=== PATIENT | male | born 1955 | race Caucasian/White ===

== ENCOUNTER 2019-08-13 22:14 | Emergency (ER) | payer MEDICARE, SELFPAY ==
--- NOTE | ~2019-08-13 | XR_ITS ---
EXAMINATION: [id number] DATE: 08/13/2019 23:23 INDICATION: Right upper rib pain after coughing TECHNIQUE: A frontal inspiratory view of the chest and 3 views of the right ribs were obtained. COMPARISON: Chest radiograph dated 05/30/[address] dated 04/08/2019 FINDINGS: Subtle old healed right eighth rib fracture which was present at the time of the prior CT. Minimally displaced age-indeterminate posterolateral right seventh rib fracture which was not present at the ti me of the prior CT. Mild bibasilar atelectasis. No pleural effusion or pneumothorax. Cardiomediastina l silhouette is normal. IMPRESSION: 1. Right seventh and eighth rib fractures, the former age-indeterminate and new since 04/08/2019. 2. Mild bibasilar atelectasis. Reviewed, dictated and finalized at location A.
[2019-08-13 22:20] VITALS: BP 164/84; PULSE 91; RESP 20; TEMP 36.7; O2SAT 95
--- NOTE | 2019-08-13 22:58 | ED.CHESTPAIN ---
HPI - Chest Pain General Chief Complaint: Unspecified Stated Complaint: pain in right rib area Time Seen by Provider: 08/13/19 22:59 Source: patient and family Mode of arrival: ambulatory Limitations: no limitations History of Present Illness HPI narrative: 63-year-old man comes in today complaining of right lower rib pain that started 4 days ago after a fit of coughing. He states he felt a pop. He denies shortness of breath, nausea, vomiting, fever, hemoptysis, sputum production, or history cardiac or lung disease. In March of last year he was seen at [facility], found to have a rib fracture and effusion but the patient thinks was brought on by coughing. He states he is taking an BASIL-inhibitor but he has not got around to seeing his doctor yet. MD complaint: chest pain Onset (ago): day(s) (4) Timing of current episode: constant Prior episodes: Yes Onset: other (while coughing) Pain location: right chest and lateral Pain radiation: none Severity: severe Quality: sharp Relieving factors: nothing Exacerbating factors: inspiration, movement and other (cough) Treatment prior to arrival: other Risk Factors Coronary artery disease risk factors: hypertension Thoracic aortic dissection risk factors: none Related Data Home Medications Medication Instructions Recorded Confirmed amlodipine 10 mg tablet 10 mg PO DAILY 03/27/19 08/13/19 cyclobenzaprine 10 mg tablet 10 mg PO TID PRN 03/27/19 08/13/19 diclofenac sodium 50 mg PO BID 04/08/19 08/13/19 Allergies Allergy/AdvReac Type Severity Reaction Status Date / Time No Known Allergies Allergy Verified 04/28/19 09:19 Review of Systems Constitutional: Constitutional: Denies chills, Denies fatigue and Denies fever(s) Eyes: Eyes: Denies change in vision and Denies photophobia ENT: Denies dysphagia, Denies nasal congestion and Denies sore throat Cardiovascular: Cardiovascular: Denies chest pain and Denies radiating jaw, neck or arm pain Respiratory: Respiratory: Denies cough, Denies dyspnea and Denies wheezing Gastrointestinal: Gastrointestinal: Denies abdominal pain, Denies nausea and Denies vomiting Genitourinary: Genitourinary: Denies hematuria, Denies dysuria and Denies urinary frequency Musculoskeletal: Musculoskeletal: Denies back pain, Denies arthralgias and Denies joint swelling Integumentary/Breasts: Skin/Breast: Denies pruritus, Denies erythema and Denies rash Neurologic: Denies vertigo, Denies dizziness and Denies syncope Hematologic/Lymphatic: Hematologic/Lymphatic: Denies easy bleeding and Denies easy bruising Allergic/Immunologic: Allergic/Immunologic: Denies lip swelling and Denies wheezing [facility] Past Medical History Medical History Atelectasis of right lung Right lower lobe Atypical mole Left upper arm Erectile dysfunction Essential hypertension Hepatic steatosis Hip pain Hyperlipidemia Lower back pain Nicotine dependence 35 pack year history - quit in 2017 Pleural effusion on right PVD (peripheral vascular disease) Surgical History Surgical History History of back surgery (~1991) L4-L5 diskectomy History of carpal tunnel release of both wrists Hx of left inguinal hernia repair Hx of right inguinal hernia repair Hx of total knee arthroplasty Bilateral Status post LASIK surgery of both eyes Social History Social History Social History: He is now disabled. 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 His ex- Love designated as his durable power patent prosecution attorney. He does needs himself to be a full code. He has 2 children Smoking packs per day: 1 Smoking cigarettes per day: 20.0 Years smoked: 35 Smoking pack-years: 35.00 Smoking status: Former smoker Tobacco type: cigarettes Smoking en
[2019-08-13] MEDS: KETOROLAC (*BKC) 60 MG/2 ML VIAL IM (23:22)
[2019-08-13 23:50] VITALS: BP 151/86; PULSE 80; RESP 20; O2SAT 94
== END 2019-08-13 23:51 | disposition home or self-care (01) ==
PROVIDERS: Emergency Provider Emergency Medicine
DX: S22.31XA Fracture of one rib, right side, initial encounter for closed fracture (principal); I10 Essential (primary) hypertension; Z87.891 Personal history of nicotine dependence; X58.XXXA Exposure to other specified factors, initial encounter
CPT/HCPCS: 71101; 96372; 99283; A9270; J1885

== ENCOUNTER 2019-11-07 12:18 | Outpatient (CLI) | payer MEDICARE, SELFPAY ==
--- NOTE | ~2019-11-07 | DEXA_ITS ---
BMD(1) Young-Adult(2) Age-Matched(3) Region (g/cm2) T-score Z-score WHO Classification L1 1.761 4.8 4.5 - L2 1.759 4.2 3.9 - L3 2.084 6.6 6.3 - L4 2.417 9.0 8.6 - L1-L4 (L3) 1.982 6.1 5.8 - Trend: L4 Change vs Change vs Measured Age BMD(1) Baseline Previous Date (years) (g/cm2) (%) (%) 11/07/2019 [age] 2.417 baseline - 1 - Statistically 68% of repeat scans fall within 1SD (+- 0.030 g/cm2 for AP Spine L4) 2 - [place] (Combined NHANES (ages 20-30) / [email or web address] (ages 20-40)) AP Spine Reference Population (v112) 3 - Matched for Age, Weight (males 25-100 kg), Ethnic 11 - World Health Organization - Definition of Osteoporosis and Osteopenia for Women: Normal = T-score at or above -1.0 SD; Osteopenia = T-score between -1.0 and -2.5 SD; Osteoporosis = T-score at or below -2.5 SD; (WHO definitions only apply when a young healthy Women reference database is used to determine T-scores.) Printed: 11/07/2019 12:56:04 PM (13.60)76:3.00:22.22:27.0 0.00:12.30 0.60x1.05 31.5:%Fat=37.2% 0.00:0.00 0.00:0.00 Filename: [id number] Scan Mode: Thick;OneScan 83.0 RealD [id number] BMD(1) Young-Adult(2,7) Age-Matched(3) Region (g/cm2) T-score Z-score WHO Classification Neck Left 1.048 -0.2 0.3 - Right 1.009 -0.5 0.0 - Mean 1.028 -0.3 0.2 - Difference 0.039 0.3 0.3 - Total Left 1.047 -0.4 -0.3 - Right 1.083 -0.1 -0.1 - Mean 1.065 -0.3 -0.2 - Difference 0.036 0.3 0.3 - Hip [place] Length Comparison (mm) WALE chart results unavailable Trend: Total Mean Change vs Change vs Measured Age BMD(1) Baseline Previous Date (years) (g/cm2) (%) (%) 11/07/2019 62.0 1.065 baseline - 1 - Statistically 68% of repeat scans fall within 1SD (+- 0.010 g/cm2 for DualFemur Total) 2 - [place] (Combined NHANES (ages 20-30) / [email or web address] (ages 20-40)) Femur Reference Population (v112) 3 - Matched for Age, Weight (males 25-100 kg), Ethnic 7 - DualFemur Total T-score difference is 0.3. Asymmetry is None. 11 - World Health Organization - Definition of Osteoporosis and Osteopenia for Women: Normal = T-score at or above -1.0 SD; Osteopenia = T-score between -1.0 and -2.5 SD; Osteoporosis = T-score at or below -2.5 SD; (WHO definitions only apply when a young healthy Women reference database is used to determine T-scores.) Printed: 11/07/2019 12:56:04 PM (13.60); Filename: [id number]; Right Femur; 22.3:%Fat=26.9%; Neck Angle (deg)= 59; Scan Mode: Standard 37.0 uGy; Left Femur; 22.8:%Fat=24.3%; Neck Angle (deg)= 62; Scan Mode: Standard 37.0 uGy [facility] [employer] [facility] [id number] Dear Denver Platt, Your patient Wily Tong completed a BMD test on 11/07/2019 using the [facility] DXA System (analysis version: 13.60) manufactured by [employer]. The following summarizes the results of our evaluation. PATIENT BIOGRAPHICAL: Name: Wily Tong Date: 1955 Height: 73.0 in. Gender: Male Exam Date: 11/07/2019 Weight: 260.0 lbs.
== END 2019-11-07 12:19 | disposition home or self-care (01) ==
PROVIDERS: PCP Family Medicine; Visit Provider Family Medicine
DX: M84.68XA Pathological fracture in other disease, other site, initial encounter for fracture (principal)
CPT/HCPCS: 77080

== ENCOUNTER 2019-11-30 14:14 | Outpatient (CLI) | payer MEDICARE, SELFPAY ==
--- NOTE | ~2019-11-30 | XR_ITS ---
EXAMINATION: XR chest 2V DATE: 11/30/2019 14:45 INDICATION: Shortness of breath TECHNIQUE: PA and lateral views of the chest were obtained. COMPARISON: Chest radiograph dated 05/30/2019 FINDINGS: Moderate right pleural effusion which appears loculated along the posterior and lateral aspect of the right hemithorax. Likely associated compressive atelectasis in the right middle and lower lobes. Lef t lung is clear. No pneumothorax, left-sided pleural effusion or evident pulmonary edema. The cardiom ediastinal silhouette is normal. There are bridging osteophytes at multiple levels in the spine, cons istent with diffuse idiopathic skeletal hyperostosis (DISH). IMPRESSION: 1. Likely loculated moderate-sized unilateral right pleural effusion. 2. Associated compressive atelectasis in the right middle and lower lobes although underlying pneumon ia or malignancy cannot be excluded. Reviewed, dictated and finalized at location A. IMPRESSION: 1. Likely loculated moderate-sized unilateral right pleural effusion. 2. Associated compressive atelectasis in the right middle and lower lobes altho ugh underlying pneumonia or malignancy cannot be excluded.
--- NOTE | 2019-11-30 14:17 | ECG_ITS ---
Measurements Intervals [place] Rate: 111 P: 23 FL: 136 QRS: 15 QRSD: 106 T: 29 QT: 333 QTc: 453 Interpretive Statements SINUS TACHYCARDIA EARLY PRECORDIAL R/S TRANSITION CONSIDER INFERIOR INFARCT, AGE INDETERMINATE BASELINE WANDER- I, II, III, V1, V3-V4 ABNORMAL ECG Electronically Signed On 11-30-2019 14:55:44 CDT by Jonah Winters D.O.
[2019-11-30 14:26] LABS: Hematocrit 29.3 % (40.0-54.0); Hemoglobin 9.7 g/dL (14.0-18.0); Mean Corpuscular HGB Conc 33.1 g/dL (32.0-36.0); Mean Corpuscular Hemoglobin 30.1 pg (27.0-31.0); Mean Platelet Volume 10.7 fl (8.7-11.0); Platelet Count Result 285 K/mm3 (150-420); Red Blood Count 3.22 M/mm3 (4.70-6.10); Red Cell Distribution Width 14.8 % (11.6-14.4); White Blood Count 13.1 K/mm3 (4.8-10.8)
[2019-11-30 14:44] LABS: Alanine Aminotransferase 24 U/L (16-63); Albumin Level 3.5 g/dL (3.4-5.0); Alkaline Phosphatase 102 U/L (46-116); Anion Gap 14.9 mmol/L (7-16); Aspartate Amino Transferase 29 U/L (15-37); Bilirubin,Total 0.5 mg/dL (0.00-1.00); Blood Urea Nitrogen 29 mg/dL (7-18); Calcium 8.9 mg/dL (8.5-10.1); Carbon Dioxide 28 mmol/L (21-32); Chloride 99 mmol/L (98-108); Estimated Glomerular Filt Rate 31; Glucose 144 mg/dL (70-99); Osmolality Calculated 294 mOsm/kg (285-295); Potassium 3.9 mmol/L (3.5-5.1); Sodium 138 mmol/L (136-145); Total Protein 7.7 g/dL (6.4-8.2)
[2019-11-30 14:46] LABS: BNP 11.4 pg/mL (0-100); Troponin I < 0.02 ng/mL (0.00-0.056)
== END 2019-11-30 14:15 | disposition home or self-care (01) ==
LOC: CHSLAB 14:17
PROVIDERS: PCP Family Medicine; Visit Provider Family Medicine
DX: R06.02 Shortness of breath (principal)
CPT/HCPCS: 36415; 71046; 80053; 83880; 84484; 85027; 93005

== ENCOUNTER 2019-12-04 09:56 | Outpatient (CLI) | payer MEDICARE, SELFPAY ==
[2019-12-01 17:19] VITALS: BMI 34.2
--- NOTE | ~2019-12-04 | US_ITS ---
EXAMINATION: US thoracentesis DATE: 12/04/2019 13:27 INDICATION: pleural effusion TECHNIQUE: The procedure and its risks, benefits, and alternatives were discussed with the patient. P otential risks discussed included bleeding, infection, and pneumothorax. The patient understood the r isks and agreed to proceed. The skin was prepped and draped in sterile fashion. 1% lidocaine was used for local anesthesia. Under ultrasound guidance, a 5 Fr catheter with trochar was advanced into the right pleural effusion. Fluid was aspirated. The catheter was removed, and a dressing was applied. Th ere were no immediate complications. FINDINGS: Ultrasound images demonstrate a right pleural effusion and the catheter within the fluid. IMPRESSION: 1. Successful ultrasound-guided thoracentesis yielding 1000 mL of opaque, dark red fluid. Reviewed, dictated and finalized at location A.
--- NOTE | ~2019-12-04 | XR_ITS ---
EXAMINATION: XR chest 1V DATE: 12/04/2019 13:15 INDICATION: Right pleural effusion status post thoracentesis. TECHNIQUE: A single frontal view of the chest was obtained. COMPARISON: Chest 2 views 11/30/2019 FINDINGS: There is a moderate-sized right pleural effusion. There are airspace opacities in right jose eduardo g with a basilar predominance. No pneumothorax. The heart size is normal. IMPRESSION: 1. Moderate-sized right pleural effusion with improvement status post thoracentesis. 2. Airspace opacities in right lung with a basilar predominance, consistent with atelectasis or less likely pneumonia. Reviewed, dictated and finalized at location A. IMPRESSION: 1. Moderate-sized right pleural effusion with improvement status post thoracent esis. 2. Airspace opacities in right lung with a basilar predominance, consistent wit h atelectasis or less likely pneumonia.
[2019-12-04 10:47] LABS: Lactate Dehydrogenase 401 U/L (313-618)
[2019-12-04 11:50] LABS: Alanine Aminotransferase 20 U/L (4-50); Albumin Level 4.3 g/dL (3.5-5.1); Alkaline Phosphatase 115 U/L (38-126); Aspartate Amino Transferase 33 U/L (17-59); Bilirubin,Total 0.3 mg/dL (0.2-1.3); Blood Urea Nitrogen 17 mg/dL (9-20); Calcium 9.2 mg/dL (8.4-10.2); Carbon Dioxide 25 mmol/L (22-30); Chloride 102 mmol/L (98-107); Estimated CRCL calculation 91 ml/min; Estimated Glomerular Filt Rate > 60; Glucose 129 mg/dL (75-110); Potassium 3.9 mmol/L (3.4-5.0); Sodium 138 mmol/L (137-145)
[2019-12-04 11:56] LABS: Mean Platelet Volume 10.8 fl (7.4-10.4); Platelet Count Result 295 k/mm3 (150-375)
[2019-12-04 12:06] LABS: INR 1.1
[2019-12-04 13:15] VITALS: BP 159/89; PULSE 97
[2019-12-04 13:21] VITALS: BP 151/101; PULSE 110; RESP 20; O2SAT 94
[2019-12-04 13:22] VITALS: BP 143/87; PULSE 97; RESP 20; O2SAT 93
[2019-12-04 13:22] LABS: pH Pleural Fluid 7.115 (7.210-7.500)
[2019-12-04 13:45] VITALS: BP 130/85; PULSE 94
[2019-12-04 14:15] VITALS: BP 136/88; PULSE 98; O2SAT 95
[2019-12-04 14:45] VITALS: BP 136/87; PULSE 93
[2019-12-04 14:48] LABS: Appearance Pleural Fluid Turbid (Clear); Color Pleural Fluid Red (Colorless); Pleural fluid source Pleural fluid
[2019-12-04 14:49] LABS: Lymphocytes Pleural Fluid 43 %; Macrophages Pleural Fluid 1 %; Monocytes Pleural Fluid 2 %; Neutrophils Pleural Fluid 43 % (0-25); Other Cells Pleural Fluid 11 %
[2019-12-07 06:12] LABS: Glucose Pleural Fluid 38 mg/dL
== END 2019-12-04 15:13 | disposition home or self-care (01) ==
PROVIDERS: Radiology Diagnostic Radiology; Visit Provider Family Medicine
DX: J90 Pleural effusion, not elsewhere classified (principal); R91.8 Other nonspecific abnormal finding of lung field
CPT/HCPCS: 32555; 36415; 71045; 80053; 82945; 83615; 83986; 84155; 84157; 85049; 85610; 87015; 87070; 87075; 87102; 87116; 87205; 87206; 89051; C1729

== ENCOUNTER 2019-12-11 11:16 | Outpatient (CLI) | payer MEDICARE, SELFPAY ==
--- NOTE | ~2019-12-11 | XR_ITS ---
EXAMINATION: XR chest 2V EXAM DATE: 12/11/2019 11:41 INDICATION: Pleural effusion. TECHNIQUE: Frontal and lateral projections of the chest obtained and reviewed. Comparison is made to prior examination from 12/04/2019. FINDINGS: Again there is moderate-sized right pleural effusion, adjacent airspace disease at least p artly atelectasis but other underlying process not excludable. Left lung is clear, no left pleural ef fusion. Cardiomediastinal silhouette is normal. There is no pneumothorax suspected. IMPRESSION: Moderate right pleural effusion, adjacent airspace disease unchanged. Reviewed, dictated and finalized at location A. IMPRESSION: Moderate right pleural effusion, adjacent airspace disease promise ash
--- NOTE | 2019-12-11 11:19 | ECG_ITS ---
Measurements Intervals [place] Rate: 94 P: 28 PA: 149 QRS: 2 QRSD: 105 T: 19 QT: 359 QTc: 450 Interpretive Statements SINUS RHYTHM NORMAL ECG Electronically Signed On 12-11-2019 11:49:42 CDT by Jonah Winters D.O.
== END 2019-12-11 11:17 | disposition home or self-care (01) ==
PROVIDERS: PCP Nurse Practitioner Family; Visit Provider Nurse Practitioner Family
DX: R94.31 Abnormal electrocardiogram [ECG] [EKG] (principal); J90 Pleural effusion, not elsewhere classified
CPT/HCPCS: 71046; 93005

== ENCOUNTER 2019-12-19 13:32 | Outpatient (CLI) | payer MEDICARE, SELFPAY ==
[2019-12-19 13:44] LABS: Basophils Absolute Auto 0.06 K/mm3 (0.00-0.10); Basophils Percent Auto 0.7 % (0.0-1.0); Eosinophils Absolute Auto 0.37 K/mm3 (0.02-0.50); Hematocrit 32.1 % (40.0-54.0); Hemoglobin 10.2 g/dL (14.0-18.0); Immature Granulocyte Absolute 0.08 K/mm3 (0.00-0.00); Immature Granulocyte Percent A 0.9 % (0.0-0.0); Lymphocytes Percent Auto 32.6 % (18.0-42.0); Mean Corpuscular HGB Conc 31.8 g/dL (32.0-36.0); Mean Corpuscular Hemoglobin 28.8 pg (27.0-31.0); Mean Corpuscular Volume 90.7 fL (78.0-102.0); Monocytes Absolute Auto 0.78 K/mm3 (0.10-0.90); Monocytes Percent Auto 8.5 % (2.0-11.0); Neutrophils Absolute Auto 4.9 K/mm3 (1.7-7.2); Neutrophils Percent Auto 53.3 % (50.0-70.0); Platelet Count Result 285 K/mm3 (150-420); Red Blood Count 3.54 M/mm3 (4.70-6.10); Red Cell Distribution Width 15.6 % (11.6-14.4); White Blood Count 9.2 K/mm3 (4.8-10.8)
[2019-12-19 13:46] LABS: Appearance Urine Clear (Clear); Bilirubin Urine Negative (Negative); Color Urine Yellow (Yellow); Glucose Urine UA Negative (Negative); Ketones Urine Negative (Negative); Leukocyte Esterase Ur Negative (Negative); Nitrate Urine Negative (Negative); Protein Urine Negative (Negative); Urobilinogen Urine 0.2 mg/dL (0.2-1.0); pH Urine 5.5 (5.0-8.0)
[2019-12-19 13:50] LABS: Add Urine Microscopic? YES; Bacteria Urine None seen /hpf; Blood Urine Trace-Intact (Negative); RBC Urine 0-2 /hpf (0-2); Squamous Epithelial Cell Urine Rare /hpf (Few); WBC Urine None seen /hpf (0-3)
[2019-12-19 13:55] LABS: INR 1.1; Prothrombin Time 11.3 Seconds (9.64-11.0)
[2019-12-19 14:41] LABS: Anion Gap 14.7 mmol/L (7-16); Blood Urea Nitrogen 13 mg/dL (7-18); Calcium 8.6 mg/dL (8.5-10.1); Carbon Dioxide 24 mmol/L (21-32); Chloride 103 mmol/L (98-108); Estimated Glomerular Filt Rate 60; Glucose 190 mg/dL (70-99); Osmolality Calculated 291 mOsm/kg (285-295); Potassium 3.7 mmol/L (3.5-5.1); Sodium 138 mmol/L (136-145)
== END 2019-12-19 13:33 | disposition home or self-care (01) ==
LOC: CHSLAB 13:34
PROVIDERS: PCP Family Medicine; Visit Provider Thoracic Surgery (Cardiothoracic Vascular Surgery)
DX: J90 Pleural effusion, not elsewhere classified (principal); Z01.818 Encounter for other preprocedural examination
CPT/HCPCS: 36415; 80048; 81001; 85025; 85610

== ENCOUNTER 2020-01-02 14:54 | Outpatient (CLI) | payer MEDICARE, SELFPAY ==
--- NOTE | ~2020-01-02 | XR_ITS ---
EXAMINATION: XR shoulder LT min 2V EXAM DATE: 01/02/2020 15:24 INDICATION: Left shoulder pain, states history of fall 4 days ago. Initial encounter. TECHNIQUE: The following left shoulder projections obtained: frontal projection with internal rotatio n, frontal projection with external rotation, Grashey, and axillary (4+ views). There is no prior st udy for comparison. FINDINGS: No evidence of left shoulder rotator cuff calcific tendinosis. There is mild glenohumera l, moderate acromioclavicular primary osteoarthritis. There are no acute fractures or dislocations id entified. There is no subcutaneous gas. The soft tissue is unremarkable. There are no radiopaque foreign bodies. 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 Reviewed, dictated and finalized at location B.
== END 2020-01-02 14:55 | disposition home or self-care (01) ==
LOC: CHSIMG 14:57
PROVIDERS: PCP Family Medicine; Visit Provider Family Medicine
DX: M25.512 Pain in left shoulder (principal)
CPT/HCPCS: 73030

== ENCOUNTER 2020-01-11 15:15 | Outpatient (CLI) | payer MEDICARE, SELFPAY ==
--- NOTE | ~2020-01-11 | XR_ITS ---
XR chest 2V 01/11/2020 15:30 Indication: Pleural effusion Procedure: PA and lateral views of the chest Comparison: Comparison to multiple prior studies sequentially, with oldest reviewed study dated 05/30. Findings: Persistent moderate loculated right pleural effusion. There is right basilar airspace disea se. Heart size normal. Left lung clear. No pneumothorax. Impression: 1: Moderate loculated right pleural effusion. 2: Right basilar airspace consolidation may represent atelectasis, scarring and/or pneumonia. Reviewed, dictated and finalized at location A. Impression: 1: Moderate loculated right pleural effusion. 2: Right basilar airspace consolidation may represent atelectasis, scarring and /or pneumonia.
== END 2020-01-11 15:16 | disposition home or self-care (01) ==
LOC: CHSIMG 15:17
PROVIDERS: PCP Family Medicine; Visit Provider Thoracic Surgery (Cardiothoracic Vascular Surgery)
DX: J90 Pleural effusion, not elsewhere classified (principal)
CPT/HCPCS: 71046

== ENCOUNTER 2020-03-30 08:48 | Emergency (ER) | payer MEDICARE, SELFPAY ==
--- NOTE | ~2020-03-30 | XR_ITS ---
EXAMINATION: XR chest 2V DATE: 03/30/2020 09:26 INDICATION: Cough, right-sided chest pain TECHNIQUE: PA and lateral views of the chest are obtained. COMPARISON: 01/11/2020 FINDINGS: An unchanged moderate size loculated right pleural effusion is noted. Airspace opacities of the right mid and lower lung zones are not significantly changed. Left lung is clear. There is no pn eumothorax. The cardiomediastinal silhouette is stable. IMPRESSION: 1. Moderate-sized likely right pleural effusion without significant change. Stable adjacent airspace opacities likely reflect atelectasis. Reviewed, dictated and finalized at location A. D ANIMAL VETERINARIAN IMPRESSION: 1. Moderate-sized likely right pleural effusion without significant change. Sta ble adjacent airspace opacities likely reflect atelectasis.
[2020-03-30 09:00] VITALS: BP 168/93; PULSE 100; RESP 20; TEMP 36.3; O2SAT 96
[2020-03-30] MEDS: HYDROcodone/acetaminophen (*CRX) 5-325 MG TABLET 2 TAB PO (10:21)
[2020-03-30 10:44] LABS: Base Excess ABG 1.3 mmol/L (0-2); HCO3 ABG 26.1 mmol/L (23-29); Oxygen Content ABG 18.9 %vol (16.0-22.0); Oxygen Saturation ABG 96.5 % (95-97); Oxyhemoglobin 95.3 % (94-100); PCO2 ABG 42.2 mmHg (35-45); PO2 ABG 81.8 mmHg (80-90); Total Hemoglobin 14.1 g/dL; pH ABG 7.41 (7.35-7.45)
[2020-03-30 10:45] LABS: Device ROOM AIR; Modified Allen's Test Pass; Site Drawn RIGHT RADIAL
--- NOTE | 2020-03-30 10:45 | PC.NURSE ---
1000 ERP spoke c pt. re: CXR results and pt. states he knows of his hx of pleural effusion and doesn't want transfer to [place]. Pt. reports wanting something to control his pain and the he will call his PMD and specialists on Wednesday for f/u. Oders obtained from ERP for pain medication.
--- NOTE | 2020-03-30 11:23 | ED.GENADULT ---
HPI - General Adult General Chief complaint: Shortness of Breath/Dyspnea Stated complaint: Broke rib Time Seen by Provider: 03/30/20 09:00 Source: patient and family Mode of arrival: ambulatory Limitations: no limitations History of Present Illness HPI narrative: Patient comes in because of mild chest pain on right lateral chest where he has had a pleural effusion in the past and has had a thoracentesis. He is to return for a repeat thoracentesis. He has had continual mild pain there. This has been unchanged for the past several days. He comes in asking for something for pain, and stating he has further testing scheduled. Related Data Home Medications Medication Instructions Recorded Confirmed cyclobenzaprine 10 mg tablet 10 mg PO DAILY PRN 03/27/19 03/30/20 Allergies Allergy/AdvReac Type Severity Reaction Status Date / Time No Known Allergies Allergy Verified 01/08/20 07:36 Review of Systems Review of Systems: Narrative: Review of systems negative except as above. [facility] Past Medical History Medical History (Updated 03/30/20 @ 11:25 by Davide Cowart MD) Atelectasis of right lung Right lower lobe Atypical mole Left upper arm Erectile dysfunction Essential hypertension Hepatic steatosis Hip pain Hyperlipidemia Lower back pain Nicotine dependence 35 pack year history - quit in 2017 Pleural effusion on right PVD (peripheral vascular disease) Surgical History Surgical History History of back surgery (~1991) L4-L5 diskectomy History of carpal tunnel release of both wrists Hx of left inguinal hernia repair Hx of right inguinal hernia repair Hx of total knee arthroplasty Bilateral Status post LASIK surgery of both eyes Family History Family History Mother Family history of dementia Father Acute myocardial infarction Hypertension Sibling Cerebrovascular accident Diabetes mellitus Hypertension Sibling Hypertension Social History Social History Social History: He is now disabled. 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 His ex- Love designated as his durable power commercial attorney. He does needs himself to be a full code. He has 2 children Smoking packs per day: 1 Smoking cigarettes per day: 20.0 Years smoked: 35 Smoking pack-years: 35.00 Smoking status: Former smoker Tobacco type: cigarettes Smoking end date: 05/17/16 Alcohol intake: current Substance use type: marijuana Other substance usage details: Uses relatives medical marijuana just recently for his back and hip pain Gender identity (if verbalized by the patient): Male Spiritual care concerns: No Agree to blood products: Yes Exam Const: General: healthy appearing and no acute distress Orientation/consciousness: patient oriented x3 HENMT: Head: normal to inspection General nose exam: Normal nares present Face and sinus: normal facial exam Mouth: Yes moist mucous membranes Throat: posterior oropharynx normal Eyes: Conjunctivae: conjunctivae normal and conjunctival abnormality Chest: Chest palpation & inspection: normal inspection of the chest Resp: Effort & Inspection: normal respiratory effort Other: decreased breath sounds on left side Cardio: Rate: regular rate Rhythm: regular rhythm GI: GI Palp: Yes Soft to palpation Auscultation: normal bowel sounds Back/Spine/Pelvis: Back: no CVA tenderness Neuro: General: patient oriented x3 and moves all extremities Extrem: General: normal to inspection Psych: Appearance: grossly normal Mental Status: mental status grossly normal Affect: normal affect Thought content: Yes Normal thought content present Course Course Emergency Course: He was given a script for hydrocodone after ABGs were reviewed, and I had
[2020-03-30 11:30] VITALS: BP 158/103
== END 2020-03-30 11:32 | disposition home or self-care (01) ==
PROVIDERS: Emergency Provider Emergency Medicine; PCP Family Medicine
DX: R07.89 Other chest pain (principal)
CPT/HCPCS: 36600; 71046; 82805; 99283; A9270

== ENCOUNTER 2020-04-05 10:31 | Outpatient (CLI) | payer MEDICARE, SELFPAY ==
--- NOTE | ~2020-04-05 | CT_ITS ---
EXAMINATION: CT chest wo con DATE: 04/05/2020 10:52 INDICATION: Pleural effusion follow-up TECHNIQUE: Computed tomography (CT) of the chest was performed without intravenous contrast. Automate d exposure control and iterative reconstruction technique were employed. Exam dose: 785.31 mGy-cm to charity exam DLP. COMPARISON: 03/30/2022 view chest FINDINGS: There is a moderately large partly loculated posterolateral right pleural the effusion. There is associated right upper, middle and to a greater extent lower lobe adjacent atelectasis. No left pleural effusion. The left lung is clear. Normal size and homogeneous attenuation of the mid to lower included portion of the thyroid gland. There is mild shift of the heart mediastinum to the right. No hilar or mediastinal mass lesion or lymphadenopathy. No thoracic aortic aneurysm is evident. Normal heart size. Coronary artery calcifications. No pericardial effusion. Normal morphology of the adrenal glands. There is hepatic steatosis. Normal splenic size. There are right posterolateral seventh, eighth, ninth rib fractures with mild displacement. Degenerative spurring of the thoracic spine. IMPRESSION: Right seventh through ninth posterolateral rib fractures Loculated moderate right pleural effusion with adjacent lung atelectasis, especially at the lower lob e Diffuse idiopathic skeletal hyperostosis of the thoracic spine Degenerative change of the lumbar spine. Reviewed, dictated and finalized at Location A. Reviewed, dictated and finalized at location B. ATED GUARD IMPRESSION: Right seventh through ninth posterolateral rib fractures Loculated moderate right pleural effusion with adjacent lung atelectasis, espec ially at the lower lobe Diffuse idiopathic skeletal hyperostosis of the thoracic spine Degenerative change of the lumbar spine.
== END 2020-04-05 10:32 | disposition home or self-care (01) ==
LOC: CHSIMG 10:33
PROVIDERS: PCP Family Medicine; Visit Provider Thoracic Surgery (Cardiothoracic Vascular Surgery)
DX: J90 Pleural effusion, not elsewhere classified (principal)
CPT/HCPCS: 71250

== ENCOUNTER 2020-04-10 10:19 | Outpatient (CLI) | payer MEDICARE, SELFPAY ==
[2020-04-10 10:44] LABS: Basophils Absolute Auto 0.05 K/mm3 (0.00-0.10); Basophils Percent Auto 0.4 % (0.0-1.0); Eosinophils Absolute Auto 0.34 K/mm3 (0.02-0.50); Hematocrit 39.2 % (40.0-54.0); Hemoglobin 12.2 g/dL (14.0-18.0); Immature Granulocyte Percent A 0.9 % (0.0-0.0); Lymphocytes Absolute Auto 3.19 K/mm3 (1.10-4.50); Mean Corpuscular HGB Conc 31.1 g/dL (32.0-36.0); Mean Corpuscular Volume 83.4 fL (78.0-102.0); Mean Platelet Volume 9.9 fl (8.7-11.0); Monocytes Percent Auto 9.7 % (2.0-11.0); Neutrophils Absolute Auto 6.6 K/mm3 (1.7-7.2); Platelet Count Result 269 K/mm3 (150-420); Red Cell Distribution Width 17.1 % (11.6-14.4); White Blood Count 11.4 K/mm3 (4.8-10.8)
[2020-04-10 10:54] LABS: Add Urine Microscopic? NO; Appearance Urine Clear (Clear); Bilirubin Urine Negative (Negative); Blood Urine Negative (Negative); Color Urine Yellow (Yellow); Glucose Urine UA Negative (Negative); Ketones Urine Negative (Negative); Leukocyte Esterase Ur Negative LEU/UL (Negative); Nitrate Urine Negative (Negative); Protein Urine Negative (Negative); Specific Grav Ur >= 1.030 (1.010-1.020); Urobilinogen Urine 0.2 mg/dL (0.2-1.0)
[2020-04-10 10:58] LABS: Prothrombin Time 11.4 Seconds (9.50-12.10)
--- NOTE | 2020-04-10 11:00 | ECG_ITS ---
Measurements Intervals [place] Rate: 94 P: 59 PA: 150 QRS: 29 QRSD: 109 T: 29 QT: 356 QTc: 447 Interpretive Statements SINUS RHYTHM CONSIDER INFERIOR INFARCT, AGE INDETERMINATE ABNORMAL ECG Electronically Signed On 04-10-2020 11:26:46 SOFTWARE DESIGN ENGINEER by Jonah Winters D.O.
[2020-04-10 11:19] LABS: Anion Gap 11 mmol/L (8-16); Blood Urea Nitrogen 11 mg/dL (7-18); Calcium 8.7 mg/dL (8.5-10.1); Carbon Dioxide 27 mmol/L (21-32); Chloride 103 mmol/L (98-108); Estimated Glomerular Filt Rate > 60; Glucose 113 mg/dL (70-99); Osmolality Calculated 292 mOsm/kg (285-295); Potassium 3.8 mmol/L (3.5-5.1); Sodium 141 mmol/L (136-145)
== END 2020-04-10 10:20 | disposition home or self-care (01) ==
LOC: CHSLAB 10:21
PROVIDERS: PCP Family Medicine; Visit Provider Thoracic Surgery (Cardiothoracic Vascular Surgery)
DX: J90 Pleural effusion, not elsewhere classified (principal); Z01.818 Encounter for other preprocedural examination
CPT/HCPCS: 36415; 80048; 81003; 85025; 85610; 93005

== ENCOUNTER 2020-06-25 09:07 | Observation (INO) | payer MEDICARE, SELFPAY ==
--- NOTE | ~2020-06-25 | XR_ITS ---
EXAMINATION: XR chest 1V portable INDICATION: Bibasilar crackles, congestive heart failure TECHNIQUE: Portable AP chest at 1034 hours COMPARISON: 03/30/2020 FINDINGS: There is a chronic loculated right pleural effusion. Airspace opacities of the right mid an d lower lung zones persist but have improved. The left lung is clear. The heart size is normal. There is no pneumothorax. IMPRESSION: 1. Right pleural effusion with slight decrease in size. Airspace opacities of the right mid and lower lung zones likely reflect atelectasis. Reviewed, dictated and finalized at location A. FORM SUPERVISOR IMPRESSION: 1. Right pleural effusion with slight decrease in size. Airspace opacities of t he right mid and lower lung zones likely reflect atelectasis.
--- NOTE | ~2020-06-25 | US_ITS ---
EXAMINATION:US venous doppler LE BI INDICATION:Lower extremity edema TECHNIQUE: Multiple grayscale, color flow and Doppler images of the lower extremity deep venous syste ms were obtained and reviewed. COMPARISON:No prior studies for comparison. FINDINGS: The common femoral, superficial femoral and popliteal veins demonstrate normal respiratory variation, augmentation and compressibility. Color flow is also seen within the posterior tibial, pe roneal, greater saphenous and profunda veins. IMPRESSION: 1: No lower extremity deep venous thrombosis. Reviewed, dictated and finalized at location B. SING FLAGMAN
[2020-06-25 09:15] VITALS: BP 146/90; PULSE 82; RESP 18; TEMP 37.2; O2SAT 95
[2020-06-25 09:30] VITALS: PULSE 82; RESP 18; O2SAT 95
--- NOTE | 2020-06-25 09:54 | ECG_ITS ---
Measurements Intervals [place] Rate: 95 P: 47 AR: 159 QRS: 17 QRSD: 110 T: 54 QT: 359 QTc: 453 Interpretive Statements SINUS RHYTHM NORMAL ECG Electronically Signed On 06-25-2020 10:54:20 PUBLIC TRANSIT SPECIALIST by Jonah Winters D.O.
[2020-06-25 09:55] VITALS: BMI 36.6
[2020-06-25 10:18] LABS: Basophils Absolute Auto 0.08 K/mm3 (0.00-0.10); Eosinophils Absolute Auto 0.32 K/mm3 (0.02-0.50); Eosinophils Percent Auto 3.9 % (1.0-6.0); Hematocrit 42.4 % (40.0-54.0); Hemoglobin 12.9 g/dL (14.0-18.0); Immature Granulocyte Absolute 0.04 K/mm3 (0.00-0.00); Immature Granulocyte Percent A 0.5 % (0.0-0.0); Lymphocytes Absolute Auto 2.51 K/mm3 (1.10-4.50); Lymphocytes Percent Auto 30.6 % (18.0-42.0); Mean Corpuscular HGB Conc 30.4 g/dL (32.0-36.0); Mean Corpuscular Hemoglobin 24.7 pg (27.0-31.0); Mean Corpuscular Volume 81.1 fL (78.0-102.0); Mean Platelet Volume 11.4 fl (8.7-11.0); Monocytes Absolute Auto 0.73 K/mm3 (0.10-0.90); Monocytes Percent Auto 8.9 % (2.0-11.0); Neutrophils Absolute Auto 4.5 K/mm3 (1.7-7.2); Neutrophils Percent Auto 55.1 % (50.0-70.0); Platelet Count Result 224 K/mm3 (150-420); Red Blood Count 5.23 M/mm3 (4.70-6.10); Red Cell Distribution Width 17.3 % (11.6-14.4); White Blood Count 8.2 K/mm3 (4.8-10.8)
[2020-06-25 10:31] LABS: INR 1.1; Prothrombin Time 11.2 Seconds (9.50-12.10)
[2020-06-25 10:36] LABS: Alanine Aminotransferase 49 U/L (16-63); Albumin Level 4.1 g/dL (3.4-5.0); Alkaline Phosphatase 128 U/L (46-116); Anion Gap 14 mmol/L (8-16); Aspartate Amino Transferase 58 U/L (15-37); Bilirubin,Total 0.4 mg/dL (0.00-1.00); Blood Urea Nitrogen 10 mg/dL (7-18); Calcium 8.9 mg/dL (8.5-10.1); Carbon Dioxide 26 mmol/L (21-32); Chloride 100 mmol/L (98-108); Estimated CRCL calculation 94 ml/min; Estimated Glomerular Filt Rate > 60; Glucose 159 mg/dL (70-99); Magnesium 1.9 mg/dL (1.8-2.4); Osmolality Calculated 292 mOsm/kg (285-295); Potassium 3.5 mmol/L (3.5-5.1); Sodium 140 mmol/L (136-145); Total Protein 7.9 g/dL (6.4-8.2); Troponin I 8.3 ng/L (0.00-60.4)
[2020-06-25 10:37] LABS: BNP < 5.0 pg/mL (0-100)
--- NOTE | 2020-06-25 10:48 | PM.IMHP ---
H&P: HPI History of Present Illness Date/Time: 06/25/20 10:48 Chief Complaint: Bilateral lower extremity swelling Narrative: Wily Tong is a 64 year old male male that was at his primary care physician's office Dr. Miller due to bilateral lower extremity swelling. Patient has a past medical history Atelectasis of right lung,Right lower lobe,Atypical mole,Left upper arm,Erectile dysfunction,Essential hypertension,Hepatic steatosis,Hip pain,Hyperlipidemia,Lower back pain,Nicotine dependence,35 pack year history - quit in 2017,Pleural effusion on right,PVD (peripheral vascular disease). According to the patient he has had bilateral lower extremity swelling since his lung surgery . According to patient he has been exercising as advised by his cardiothoracic surgeon but continues to gain weight. He notes that he has shortness of breath with exertion but notes this is nothing new since his lung surgery. The patient denies , CP, palpitation, extremity numbness, lightheadedness, dizziness, constipation, diarrhea, chills, or fever. Patient labs including BNP are within normal limits. Chest x-ray Right pleural effusion with slight decrease in size. Airspace opacities of the right mid and lower lung zones likely reflect atelectasis. Patient's echo pending. This document was completed by using [employer] Direct speech recognition software, therefore parts designer variances may occur. Despite proofreading, typographical errors may also occur. Review of Systems Review of Systems: All systems reviewed & are unremarkable except as noted in HPI and below (10 point system review) [facility] Past Medical History Medical History (Updated 06/25/20 @ 11:14 by UZIEL Jimenez) Atelectasis of right lung Right lower lobe Atypical mole Left upper arm Erectile dysfunction Essential hypertension (Unknown) Hepatic steatosis Hip pain Hyperlipidemia Lower back pain Nicotine dependence 35 pack year history - quit in 2017 Pleural effusion on right PVD (peripheral vascular disease) Surgical History Surgical History History of back surgery (~1991) L4-L5 diskectomy History of carpal tunnel release of both wrists Hx of left inguinal hernia repair Hx of right inguinal hernia repair Hx of total knee arthroplasty Bilateral Status post LASIK surgery of both eyes Family History Family History Mother Family history of dementia Father Acute myocardial infarction Hypertension Sibling Cerebrovascular accident Diabetes mellitus Hypertension Sibling Hypertension Social History Social History Social History: He is now disabled. 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 His ex- Love designated as his durable power employment law attorney. He does needs himself to be a full code. He has 2 children Smoking packs per day: 1 Smoking cigarettes per day: 20.0 Years smoked: 35 Smoking pack-years: 35.00 Smoking status: Former smoker Tobacco type: cigarettes Smoking end date: 05/17/16 Alcohol intake: never Substance use type: marijuana Other substance usage details: Uses relatives medical marijuana just recently for his back and hip pain Gender identity (if verbalized by the patient): Male Spiritual care concerns: No Agree to blood products: Yes Meds Home Medications and Allergies Home Medications Medication Instructions Recorded Confirmed Type cyclobenzaprine 10 mg tablet 10 mg PO DAILY PRN 03/27/19 03/30/20 History rosuvastatin 20 mg tablet 20 mg PO DAILY #90 tablet 08/04/19 03/30/20 Rx omeprazole 40 mg capsule,delayed 40 mg PO DAILY #90 cap 08/16/19 03/30/20 Rx release albuterol sulfate 90 mcg/actuation See Rx Instructions .ROUTE 04/01/20 Rx aerosol inhaler .COMPLEX
--- NOTE | 2020-06-25 11:40 | PM.IMHP ---
H&P: HPI History of Present Illness Date/Time: 06/25/20 11:40 Wily is a 64M with a PMH of recurrent pleural effusion s/p surgery, hypertension, PAD, sleep apnea and hepatic steatosis and GERD that was found to have anasarca in clinic. However, he was not willing to be admitted yesterday. He is willing to be admitted today. He has gained 25-28lbs in a few months and had exercise intolerance. No CP, palpiations, near syncope/syncope or dyspnea at rest. No N/V, fevers, or chills. Chief Complaint: Anascarca Review of Systems Constitutional: Constitutional: Denies body ache(s), Denies chills, Denies fever(s), Denies weight gain and Denies weight loss Eyes: Eyes: Denies change in vision, Denies eye discharge and Denies loss of vision ENT: Denies Normal hearing present, Denies vertigo, Denies dizziness and Denies epistaxis Cardiovascular: Cardiovascular: Denies chest pain with activity, Denies syncope, Denies edema and Denies dyspnea on exertion Respiratory: Respiratory: Denies cough, Denies hemoptysis and Denies dyspnea on exertion Gastrointestinal: Gastrointestinal: Denies abdominal pain, Denies diarrhea, Denies nausea and Denies vomiting Genitourinary: Genitourinary: Denies hematuria and Denies dysuria Musculoskeletal: Musculoskeletal: Denies deformity Neurologic: Denies Normal hearing present, Denies behavioral changes, Denies confusion, Denies vertigo, Denies dizziness, Denies syncope and Denies loss of vision Psychiatric: Psychiatric: Denies anxiety, Denies behavioral changes, Denies confusion and Denies depression Endocrine: Endocrine: Reports no additional endocrine complaints Hematologic/Lymphatic: Hematologic/Lymphatic: Reports no additional hematologic/lymphatic complaints Allergic/Immunologic: Allergic/Immunologic: Reports no additional allergic/immunologic complaints [facility] Past Medical History Medical History (Updated 06/25/20 @ 11:14 by UZIEL Jimenez) Atelectasis of right lung Right lower lobe Atypical mole Left upper arm Erectile dysfunction Essential hypertension (Unknown) Hepatic steatosis Hip pain Hyperlipidemia Lower back pain Nicotine dependence 35 pack year history - quit in 2017 Pleural effusion on right PVD (peripheral vascular disease) Surgical History Surgical History History of back surgery (~1991) L4-L5 diskectomy History of carpal tunnel release of both wrists Hx of left inguinal hernia repair Hx of right inguinal hernia repair Hx of total knee arthroplasty Bilateral Status post LASIK surgery of both eyes Family History Family History Mother Family history of dementia Father Acute myocardial infarction Hypertension Sibling Cerebrovascular accident Diabetes mellitus Hypertension Sibling Hypertension Social History Social History Social History: He is now disabled. 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 His ex- Love designated as his durable power real estate attorney. He does needs himself to be a full code. He has 2 children Smoking packs per day: 1 Smoking cigarettes per day: 20.0 Years smoked: 35 Smoking pack-years: 35.00 Smoking status: Former smoker Tobacco type: cigarettes Smoking end date: 05/17/16 Alcohol intake: never Substance use type: marijuana Other substance usage details: Uses relatives medical marijuana just recently for his back and hip pain Gender identity (if verbalized by the patient): Male Spiritual care concerns: No Agree to blood products: Yes Meds Home Medications and Allergies Home Medications Medication Instructions Recorded Confirmed Type cyclobenzaprine 10 mg tablet 10 mg PO DAILY PRN 03/27/19 06/25/20 History rosuvastatin 20 mg tablet 20 mg PO DAILY #90 tablet 0
[2020-06-25] MEDS: ENOXAPARIN 40 MG/0.4 ML SYRINGE SUB-Q (13:49)
--- NOTE | 2020-06-25 14:00 | ECHO_ITS ---
Patient Info Name: Wily Tong Age: 64 years : 1955 Gender: Male Ht: 73 in Wt: 278 lbs BSA: 2.59 m2 HR: 86 bpm BP: 146 / 90 mmHg Technical Quality: Good Exam Date: 06/25/2020 1:55 PM Exam Location: [facility] Patient Status: Outpatient Admit Date: 06/25/2020 Staff Ordering Physician: Denver Platt DO Security Systems Technician: Scott Almanza RDCS, RT Attending Provider: Jj Fleming MD Referring Physician: Lc GILL; Exam Type: CA echo doppler color flow Study Info Indications I50.9 - Heart failure, unspecified Complete two-dimensional, color flow and Doppler transthoracic echocardiogram is performed. Strain analysis performed. Summary 1. Complete two-dimensional, color flow and Doppler transthoracic echocardiogram is performed. 2. Left ventricular chamber dimension is normal. 3. Left ventricular systolic function is normal, estimated at 55-60%. 4. There is moderately increased left ventricular wall thickness. 5. The left ventricular diastolic function is grade I diastolic dysfunction. 6. E/e' 7 is not elevated. 7. Global longitudinal strain is abnormal at -10.8%. 8. There is mild aortic valve sclerosis. 9. Small mobile calcified rounded mass attached to right coronary cusp of aortic valve suggestive of calcified prior vegetation or sclerocalcification of aortic valve. Consider MIKE if clinically indicated. Left Ventricle E/e' 7 is not elevated. Global longitudinal strain is abnormal at -10.8%. Left ventricular chamber dimension is normal. Left ventricular systolic function is normal, estimated at 55-60%. There is moderately increased left ventricular wall thickness. The left ventricular diastolic function is grade I diastolic dysfunction. Right Ventricle Right ventricular chamber dimension is normal. Right ventricular systolic function is normal. Left Atria Left atrial chamber dimension is normal. Right Atria Right atrial chamber dimension is normal. Aortic Valve Small mobile calcified rounded mass attached to right coronary cusp of aortic valve suggestive of calcified prior vegetation or sclerocalcification of aortic valve. Consider MIKE if clinically indicated. The aortic valve is trileaflet. There is mild aortic valve sclerosis. There is no aortic valve stenosis. There is no aortic valve regurgitation. Pulmonic Valve The pulmonic valve is not well visualized. Mitral Valve There is no mitral valve stenosis. There is no mitral valve regurgitation. Tricuspid Valve The tricuspid valve leaflets are not well visualized. There is no tricuspid valve regurgitation. Pericardium/Pleural There is no pericardial effusion. Inferior Vena Cava Normal inferior vena cava with >50% collapse upon inspiration consistent with normal right atrial pressure, 5 mmHg. Aorta The aortic root size at the sinus of Valsalva is not well visualized. Left Ventricular Outflow Tract Name Value Normal LVOT 2D LVOT Diameter 1.9 cm LVOT Doppler LVOT Peak Velocity 103 cm/s LVOT Peak Gradient 4 mmHg LVOT Mean Gradient 2 mmH
[2020-06-25 15:51] VITALS: BP 158/92; PULSE 95; RESP 18; TEMP 36.9; O2SAT 95
--- NOTE | 2020-06-25 16:00 | PC.NURSE ---
IV lasix given, advised to keep all urine output until RN back to measure
[2020-06-25] MEDS: FUROSEMIDE INJ 40 MG/4 ML VIAL IV PUSH (16:02)
--- NOTE | 2020-06-25 16:43 | PC.NURSE ---
775ml out at this time for urine output
--- NOTE | 2020-06-25 17:16 | PC.NURSE ---
diureses of 350ml
--- NOTE | 2020-06-25 18:02 | PC.NURSE ---
urinal empty at this time, ate fair for dinner, no distress
[2020-06-25 18:58] LABS: CRP 0.7 mg/dL (0.0-0.9)
[2020-06-25] MEDS: traMADol HCL (*CRX) 50 MG TABLET PO (19:23)
[2020-06-25] MEDS: ACETAMINOPHEN 325 MG TABLET 650 MG PO (19:25)
[2020-06-25 19:45] LABS: Erythrocyte Sedimentation Rate 12 mm/hr (0-20)
[2020-06-25] MEDS: traZODone HCL 50 MG TABLET PO (21:40)
[2020-06-25 23:31] VITALS: BP 128/86; PULSE 100; RESP 20; TEMP 36.7; O2SAT 93
[2020-06-26] MEDS: CYCLOBENZAPRINE HCL 10 MG TABLET PO (00:34)
[2020-06-26 06:00] LABS: Hematocrit 42.6 % (40.0-54.0); Hemoglobin 13.2 g/dL (14.0-18.0); Mean Corpuscular Hemoglobin 25.1 pg (27.0-31.0); Mean Corpuscular Volume 81.1 fL (78.0-102.0); Mean Platelet Volume 11.5 fl (8.7-11.0); Platelet Count Result 234 K/mm3 (150-420); Red Blood Count 5.25 M/mm3 (4.70-6.10); Red Cell Distribution Width 17.4 % (11.6-14.4); White Blood Count 7.8 K/mm3 (4.8-10.8)
[2020-06-26 06:16] LABS: Alanine Aminotransferase 51 U/L (16-63); Albumin Level 4.2 g/dL (3.4-5.0); Alkaline Phosphatase 127 U/L (46-116); Anion Gap 14 mmol/L (8-16); Aspartate Amino Transferase 57 U/L (15-37); Bilirubin,Total 0.6 mg/dL (0.00-1.00); Blood Urea Nitrogen 11 mg/dL (7-18); Carbon Dioxide 27 mmol/L (21-32); Chloride 100 mmol/L (98-108); Estimated CRCL calculation 93 ml/min; Estimated Glomerular Filt Rate > 60; Glucose 145 mg/dL (70-99); Osmolality Calculated 294 mOsm/kg (285-295); Potassium 3.6 mmol/L (3.5-5.1); Sodium 141 mmol/L (136-145); Total Protein 7.3 g/dL (6.4-8.2)
[2020-06-26 08:00] VITALS: BP 153/89; PULSE 96; RESP 16; TEMP 36.9; O2SAT 95
[2020-06-26] MEDS: FUROSEMIDE INJ 40 MG/4 ML VIAL IV PUSH (09:33)
[2020-06-26] MEDS: ROSUVASTATIN 10 MG TABLET 20 MG PO (09:33)
[2020-06-26] MEDS: PANTOPRAZOLE SOD SESQUIHYDRATE 20 MG TAB PO (09:33)
[2020-06-26] MEDS: amLODIPine BESYLATE 5 MG TABLET 10 MG PO (09:33)
--- NOTE | 2020-06-26 11:52 | PM.DS ---
DS: Admitting Diagnosis Admitting Diagnosis Admitting Diagnosis: Newly diagnosed congestive heart failure <UZIEL Jimenez - Last Filed: 06/26/20 12:05> DS: Discharge Diagnosis Discharge Diagnosis (1) CHF exacerbation: Code(s): I50.9 - Heart failure, unspecified <UZIEL Jimenez - Last Filed: 06/26/20 12:05> Status: Acute <UZIEL Jimenez - Last Filed: 06/26/20 12:05> Assessment and Plan: Newly diagnosed congestive heart failure Patient primary care physician Dr. Summers admitting patient Patient EKG sinus rhythm with a heart rate of 95 Troponins negative BMP within normal limits Echo grade 1 diastolic dysfunction Patient cardiothoracic Dr Foy Chest x-ray indicates right pleural effusion with slight decrease in size. Airspace opacities of the right mid and lower lung zones likely reflect atelectasis. Patient will discharge home with Lasix daily <UZIEL Jimenez - Last Filed: 06/26/20 12:05> (2) Atelectasis of right lung: Code(s): J98.11 - Atelectasis <UZIEL Jimenez - Last Filed: 06/26/20 12:05> Status: Chronic <UZIEL Jimenez - Last Filed: 06/26/20 12:05> Assessment and Plan: Patient cardiothoracic Dr Foy Patient with a history of VATS decortication and thoracotomy <UZIEL Jimenez - Last Filed: 06/26/20 12:05> (3) PVD (peripheral vascular disease): Code(s): I73.9 - Peripheral vascular disease, unspecified <UZIEL Jimenez - Last Filed: 06/26/20 12:05> Status: Chronic <UZIEL Jimenez - Last Filed: 06/26/20 12:05> (4) Hyperlipidemia: Qualifiers: Hyperlipidemia type: unspecified Qualified Code(s): E78.5 - Hyperlipidemia, unspecified <UZIEL Jimenez - Last Filed: 06/26/20 12:05> Code(s): E78.5 - Hyperlipidemia, unspecified <UZIEL Jimenez - Last Filed: 06/26/20 12:05> Status: Chronic <UZIEL Jimenez - Last Filed: 06/26/20 12:05> Assessment and Plan: Continue statin <UZIEL Jimenez - Last Filed: 06/26/20 12:05> (5) Essential hypertension: Onset Date: Unknown <UZIEL Jimenez - Last Filed: 06/26/20 12:05> Code(s): I10 - Essential (primary) hypertension <UZIEL Jimenez - Last Filed: 06/26/20 12:05> Status: Chronic <UZIEL Jimenez - Last Filed: 06/26/20 12:05> Assessment and Plan: Continue amlodipine 10 mg daily <UZIEL Jimenez - Last Filed: 06/26/20 12:05> (6) Lower back pain: Code(s): M54.5 - Low back pain <UZIEL Jimenez - Last Filed: 06/26/20 12:05> Status: Acute <UZIEL Jimenez - Last Filed: 06/26/20 12:05> Assessment and Plan: Continue pain medication <UZIEL Jimenez - Last Filed: 06/26/20 12:05> DS: Summary Hospital Course Hospital Course: Wily Tong is a 64 year old male male that was at his primary care physician's office Dr. Miller due to bilateral lower extremity swelling. Patient has a past medical history Atelectasis of right lung,Right lower lobe,Atypical mole,Left upper arm,Erectile dysfunction,Essential hypertension,Hepatic steatosis,Hip pain,Hyperlipidemia,Lower back pain,Nicotine dependence,35 pack year history - quit in 2017,Pleural effusion on right,PVD (peripheral vascular disease). According to the patient he has had bilateral lower extremity swelling since his lung surgery . According to patient he has been exercising as advised by his cardiothoracic surgeon but continues to gain weight. He notes that he has shortness of breath with exertion but notes this is nothing new since his lung surgery. This patient is being discharged today with a new diagnosis of congestive heart failure. the patient denies , CP, palpitation, extremity numbnes
[2020-06-26] MEDS: FUROSEMIDE 40 MG TABLET PO (12:44)
[2020-06-26] MEDS: ENOXAPARIN 40 MG/0.4 ML SYRINGE SUB-Q (12:44)
[2020-06-26 14:35] LABS: BNP < 5 pg/mL (0-100)
--- NOTE | 2020-06-26 15:20 | PC.NURSE ---
Discharge instructions explained to patient, he verbalizes understanding. IV site discontinued, pressure held and dressing applied. Patient left floor per self.
--- NOTE | 2020-06-28 14:50 | PC.NURSE ---
Pt states he received and understood his discharge instructions. Pt also states you guys were great .
== END 2020-06-26 15:20 | disposition home or self-care (01) ==
PROVIDERS: Nurse Practitioner; Admitting Provider Family Medicine; PCP Family Medicine; Visit Provider Emergency Medicine
DX: I11.0 Hypertensive heart disease with heart failure (principal); I50.9 Heart failure, unspecified; J90 Pleural effusion, not elsewhere classified; J98.11 Atelectasis; I73.9 Peripheral vascular disease, unspecified; E78.5 Hyperlipidemia, unspecified; K76.0 Fatty (change of) liver, not elsewhere classified; M54.5 Low back pain; M25.559 Pain in unspecified hip; F12.90 Cannabis use, unspecified, uncomplicated; Z87.891 Personal history of nicotine dependence; Z96.653 Presence of artificial knee joint, bilateral
CPT/HCPCS: 36415; 71045; 80053; 83735; 83880; 84484; 85025; 85027; 85610; 85652; 86140; 87040; 87103; 93005; 93306; 93970; 96372; 96374; 96376; A9270; G0378; G0379; J1650; J1940

== ENCOUNTER 2020-07-01 11:18 | Outpatient (CLI) | payer MEDICARE, SELFPAY ==
[2020-07-01 12:02] LABS: Anion Gap 10 mmol/L (8-16); Blood Urea Nitrogen 20 mg/dL (7-18); Calcium 8.7 mg/dL (8.5-10.1); Carbon Dioxide 29 mmol/L (21-32); Chloride 100 mmol/L (98-108); Estimated Glomerular Filt Rate > 60; Glucose 153 mg/dL (70-99); Osmolality Calculated 293 mOsm/kg (285-295); Potassium 4.2 mmol/L (3.5-5.1); Sodium 139 mmol/L (136-145)
== END 2020-07-01 11:19 | disposition home or self-care (01) ==
LOC: CHSLAB 11:20
PROVIDERS: PCP Family Medicine; Visit Provider Family Medicine
DX: I50.9 Heart failure, unspecified (principal)
CPT/HCPCS: 36415; 80048

== ENCOUNTER 2020-07-16 08:26 | Outpatient (CLI) | payer SELFPAY | END 2020-07-16 08:27 | disposition home or self-care (01) | LOC: CHSOUTPT 08:29 | PROVIDERS: Visit Provider Family Medicine | DX: I50.30 Unspecified diastolic (congestive) heart failure (principal) | CPT/HCPCS: 99199 ==

== ENCOUNTER 2021-10-03 12:09 | Outpatient (CLI) | payer MEDICARE, SELFPAY ==
[2021-10-03 12:22] LABS: Hematocrit 44.6 % (40.0-54.0); Hemoglobin 14.7 g/dL (14.0-18.0); Mean Corpuscular Hemoglobin 30.4 pg (27.0-31.0); Mean Corpuscular Volume 92.3 fL (78.0-102.0); Mean Platelet Volume 11.3 fl (8.7-11.0); Platelet Count Result 176 K/mm3 (150-420); Red Blood Count 4.83 M/mm3 (4.70-6.10); Red Cell Distribution Width 14.6 % (11.6-14.4); White Blood Count 9.2 K/mm3 (4.8-10.8)
[2021-10-03 17:55] LABS: Alanine Aminotransferase 38 U/L (16-63); Albumin Level 3.9 g/dL (3.4-5.0); Alkaline Phosphatase 115 U/L (46-116); Anion Gap 10 mmol/L (8-16); Aspartate Amino Transferase 38 U/L (15-37); Bilirubin,Total 0.5 mg/dL (0.00-1.00); Blood Urea Nitrogen 13 mg/dL (7-18); Carbon Dioxide 26 mmol/L (21-32); Chloride 103 mmol/L (98-108); Cholesterol 118 mg/dL (0-200); Estimated Glomerular Filt Rate > 60; Glucose 102 mg/dL (70-99); HDL Direct 31 mg/dL (40-60); LDL Cholesterol Calculated 61 mg/dL (<130); Osmolality Calculated 288 mOsm/kg (285-295); Potassium 3.8 mmol/L (3.5-5.1); Sodium 139 mmol/L (136-145); Total Protein 7.3 g/dL (6.4-8.2); Triglycerides 129 mg/dL (0-150)
[2021-10-03 19:17] LABS: Thyroid Stimulating Hormone Reflex 1.48 u/IU/mL (0.36-3.74)
== END 2021-10-03 12:10 | disposition home or self-care (01) ==
LOC: CHSLAB 12:12
PROVIDERS: PCP Family Medicine; Visit Provider Family Medicine
DX: I10 Essential (primary) hypertension (principal); E78.5 Hyperlipidemia, unspecified; E11.9 Type 2 diabetes mellitus without complications
CPT/HCPCS: 36415; 80053; 80061; 84443; 85027

== ENCOUNTER 2022-04-07 09:53 | Outpatient (CLI) | payer MEDICARE, SELFPAY ==
--- NOTE | ~2022-04-07 | US_ITS ---
EXAMINATION: US arterial ankle brachial ind DATE: 04/07/2022 11:02 INDICATION: Peripheral vascular disease TECHNIQUE: Segmental pressures and plethysmographic and Doppler waveforms of the brachial and lower e xtremity arteries were obtained. COMPARISON: None. FINDINGS: Right and left brachial artery pressures of 158 mm Hg and 157 mm Hg, respectively, are concordant (no rmal difference <= 30 mmHg). The right ankle-brachial index (WILLAM) is 0.74 (normal >= 0.9-1.0). The right great toe-brachial index (TBI) is 0.53 (normal >= 0.65). Arterial Doppler waveforms are triphasic with brisk systolic upstroke s at the right femoral, superficial femoral, popliteal and posterior tibial and arteries. Arterial wa veforms at the right dorsalis pedis artery are too attenuated to discern pressures or accurate wavefo rm. The left WILLAM is 0.81. The left TBI is 0.42. Arterial Doppler waveforms are biphasic with brisk systol ic upstrokes at the left femoral, superficial femoral, popliteal, posterior tibial and dorsalis pedis arteries. IMPRESSION: 1. Bilateral arterial occlusive disease with mild to moderately decreased right and mildly decreased left ABIs. Reviewed, dictated and finalized at location A. [employer]
== END 2022-04-07 09:54 | disposition home or self-care (01) ==
LOC: CHSIMG 09:55
PROVIDERS: PCP Family Medicine; Visit Provider Family Medicine
DX: I73.9 Peripheral vascular disease, unspecified (principal)
CPT/HCPCS: 93922

== ENCOUNTER 2022-06-16 09:26 | Outpatient (CLI) | payer MEDICARE, SELFPAY | END 2022-06-16 09:27 | disposition home or self-care (01) | LOC: CHSLAB 09:28 | PROVIDERS: PCP Family Medicine; Visit Provider Specialist | DX: L98.9 Disorder of the skin and subcutaneous tissue, unspecified (principal) | CPT/HCPCS: 88305 ==

== ENCOUNTER 2023-03-04 09:57 | Outpatient (RCR) | payer MEDICARE, SELFPAY ==
--- NOTE | 2023-03-04 10:59 | OPREHPOC ---
Outpatient Therapy Plan of Care This is a Multidisciplinary Plan of Care that may contain components documented by all disciplines (PT, OT, and ST.) PT Problem 1 PT Problem #1 Knowledge Deficit PT Goal 1 Goal 1. independent and compliant with HEP Target Visit 4 PT Problem 2 PT Problem #2 Impaired Range of Motion PT Goal 1 Goal improve bilateral lumbar active sidebending to 25 degrees or better. improve lumbar active extension to 20 degrees Target Visit 8 PT Problem 3 PT Problem #3 Impaired Strength PT Goal 1 Goal improve bilateral hip abd to 5/5. improve core strength to hold PPT until legs are 20 degrees from table to less. Target Visit 8 PT Problem 4 PT Problem #4 Impaired Functional Mobil PT Goal 1 Goal oswestry to display less than 30% functional deficits. patient to stand for 1 hour without numbness in the LE's. patient to complete 6 minute walk test without sitting rest. Target Visit 8
--- NOTE | 2023-03-04 11:00 | PTOPEVAL1 ---
Assessment and note entered by JT File, PT Evaluation Information Assessment Status Evaluation Diagnosis lumbar spinal stenosis Onset 02/25/23 Subjective Information patient reports he has had pain in the back for years. he reports he had a discectomy 30 years ago . he reports he has been having nubmness in the bilateral LE's for a few years now. he reports he had an MRI of the lumbar spine, but reports he is having to repeat it for the neurosurgeon. he reports he has not tried therapy for his back in years. he reports he has increased pain and numbness the longer he stands. he reports no issues with sitting. he reports he did fall a few weeks ago due to his legs going numb. Reported Pain Level Pain Score 0: Self Report Assessment PT Clinical Summary mr. haywood is a 67 yo man who presents to skilled PT for evaluation and treatment of back pain. he presents with a long history of lower back pain, but a more recent onset of numbness in the bilateral LE's with standing. he presents with signs and symptoms of lumbar stenosis. he displays deficits in lumbar lordosis, lumbar rom, core strength, and deficits in standing and ambulation endurance. he would benefit from continued skilled PT to address his objective/functional deficits and improve his functional activity performance/ quality of life. Plan of Care Interventions Electrical Stimulation,Gait Training,Hot Pack/Cold Pack,Manual Therapy,Neuro Re-education,Patient/ Caregiver Educati,Therapeutic Activities, Therapeutic Exercise PT Services Indicated Yes Treatment Frequency and 2x weekly for 8 visits Duration These treatments will address the objective and functional deficits as defined above. The patient will be advanced safely and appropriately in order for the patient to progress towards his/her prior level of function. Additional exercises will be introduced and as well as a comprehensive home exercise program upon discharge, if needed, ?to ensure carryover of functional gains achieved in the clinic. This treatment plan has been reviewed and agreement upon by the patient.
--- NOTE | 2023-03-30 10:44 | OPREHPOC ---
Outpatient Therapy Plan of Care This is a Multidisciplinary Plan of Care that may contain components documented by all disciplines (PT, OT, and ST.) PT Problem 1 PT Problem #1 Knowledge Deficit PT Goal 1 Goal 1. independent and compliant with HEP Target Visit 4 Progress Met PT Problem 2 PT Problem #2 Impaired Range of Motion PT Goal 1 Goal improve bilateral lumbar active sidebending to 25 degrees or better. improve lumbar active extension to 20 degrees Target Visit 8 Progress Not Met PT Problem 3 PT Problem #3 Impaired Strength PT Goal 1 Goal improve bilateral hip abd to 5/5. improve core strength to hold PPT until legs are 20 degrees from table to less. met Target Visit 8 Progress Partially Met PT Problem 4 PT Problem #4 Impaired Functional Mobil PT Goal 1 Goal oswestry to display less than 30% functional deficits. patient to stand for 1 hour without numbness in the LE's. patient to complete 6 minute walk test without sitting rest. Target Visit 8 Progress Not Met
--- NOTE | 2023-03-30 10:45 | PTOPDC ---
Assessment and note entered by JT File, PT Evaluation Information Assessment Status Discharge Diagnosis lumbar spinal stenosis Onset 02/25/23 Subjective Information patient reports over the last few weeks he has felt worse. he reports he used to never have an issue with golfing, but now he has symptoms down the legs when golfing. he reports he does not follow up with his MD until april. he reports he is going to see pain management again, and is willing to try another injection to the lower back . he rpeorts skilled PT generally does not decrease his pain. he reports he does feel better with the stretches and rom exercises for a short time. Reported Pain Level Pain Score 2: Self Report Assessment PT Clinical Summary mr. haywood presents to skilled PT for his 8th skilled therapy visit. he presents today with continued pain in the lower back, and worsening of symptoms in the back and LE's with functional activities. due to this incerase in symptoms, and lack of significant progress towards goals, he will be dc'd from skilled PT at this time. patient will follow up with MD and pain management about next steps in his care. patient may benefit from evaluation by neurosurgeon/spine doctor. Plan of Care PT Services Indicated Yes
== END 2023-03-30 11:47 | disposition home or self-care (01) ==
LOC: CHSPT 09:57
PROVIDERS: Visit Provider Neurological Surgery
DX: M48.062 Spinal stenosis, lumbar region with neurogenic claudication (principal)
CPT/HCPCS: 97014; 97110; 97140; 97150; 97161; G0283

== ENCOUNTER 2023-03-06 08:19 | Outpatient (CLI) | payer MEDICARE, SELFPAY | END 2023-03-06 08:20 | disposition home or self-care (01) | LOC: CHSIMG 08:20 | PROVIDERS: PCP Family Medicine; Visit Provider Neurological Surgery | DX: M48.062 Spinal stenosis, lumbar region with neurogenic claudication (principal) | CPT/HCPCS: 99199 ==

== ENCOUNTER 2023-04-22 06:54 | Outpatient (CLI) | payer MEDICARE, SELFPAY ==
--- NOTE | ~2023-04-22 | MR_ITS ---
MRI of the lumbar spine Clinical History: Radiculopathy Technique: Axial T2-weighted images, and sagittal T1-weighted, T2-weighted, and T2 fat-sat images wer e acquired. Findings: Probable mild chronic wedging deformity of L1, with 4 mm retrolisthesis of L1 over L2. Ther e is minimal grade 1 retrolisthesis of L2 over L3, and of L3 over L4. There is additional minimal gra de 1 retrolisthesis of L4 over L5. There is intraosseous hemangioma of the L1 vertebral body. At L1-L2, there is severe degenerative disc narrowing. There is disc bulge and moderate to advanced f acet arthropathy. There is mild to moderate central canal stenosis. There is severe bilateral neural foraminal narrowing. At L2-L3, there is severe degenerative disc narrowing. Disc bulge and severe facet arthropathy result in severe spinal canal stenosis/thecal sac compression. There is severe bilateral neural foraminal n arrowing, right worse than left. At L3-L4, there is severe degenerative disc narrowing. Disc bulge and severe facet arthropathy result in moderate to advanced central canal stenosis/thecal sac compression. There is severe right neural foraminal narrowing, and moderate to severe left neural foraminal narrowing. At L4-L5, there is severe degenerative disc narrowing. Disc bulge and facet arthropathy are present, with probable left hemilaminectomy. There is mild central canal stenosis. There is severe bilateral n eural foraminal narrowing. At L5-S1, there is minimal disc bulge and advanced facet arthropathy. No central canal stenosis. Ther e is severe right neural foraminal narrowing. Paravertebral soft tissues are unremarkable. Impression: Severe degenerative spondylosis throughout the lumbar spine, as detailed above, probably worst at L3- L4. 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 Chronic compression deformity of L1. Reviewed, dictated and finalized at location . [employer] Impression: Severe degenerative spondylosis throughout the lumbar spine, as detailed above, probably worst at L3-L4. 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 Chronic compression deformity of L1.
== END 2023-04-22 06:55 | disposition home or self-care (01) ==
LOC: CHSIMG 06:55
PROVIDERS: PCP Family Medicine; Visit Provider Neurological Surgery
DX: R29.818 Other symptoms and signs involving the nervous system (principal); M48.062 Spinal stenosis, lumbar region with neurogenic claudication; M54.16 Radiculopathy, lumbar region; M43.06 Spondylolysis, lumbar region; M43.8X6 Other specified deforming dorsopathies, lumbar region
CPT/HCPCS: 72148

== ENCOUNTER 2023-06-15 10:37 | Outpatient (CLI) | payer BC, SELFPAY | END 2023-06-15 10:38 | disposition home or self-care (01) | PROVIDERS: PCP Family Medicine; Visit Provider Specialist | DX: D48.5 Neoplasm of uncertain behavior of skin (principal) | CPT/HCPCS: 88305 ==

== ENCOUNTER 2023-07-29 11:09 | Outpatient (CLI) | payer MEDICARE, SELFPAY ==
--- NOTE | 2023-07-29 11:14 | ECG_ITS ---
Measurements Intervals [address] Flat Rate: 68 P: 59 NV: 133 QRS: 44 QRSD: 106 T: 40 QT: 389 QTc: 417 Interpretive Statements SINUS RHYTHM EARLY PRECORDIAL R/S TRANSITION BASELINE ARTIFACT- III BORDERLINE ECG COMPARED TO ECG 06/25/2020 10:19:07 NO SIGNIFICANT CHANGES Electronically Signed On 07-29-2023 12:48:13 CDT by Jonah Winters D.O.
== END 2023-07-29 11:10 | disposition home or self-care (01) ==
LOC: CHSCARD 11:11
PROVIDERS: PCP Family Medicine; Visit Provider Family Medicine
DX: I50.30 Unspecified diastolic (congestive) heart failure (principal)
CPT/HCPCS: 93005

== ENCOUNTER 2023-09-29 09:41 | Outpatient (RCR) | payer MEDICARE, SELFPAY ==
--- NOTE | 2023-09-29 10:35 | OPREHPOC ---
Outpatient Therapy Plan of Care This is a Multidisciplinary Plan of Care that may contain components documented by all disciplines (PT, OT, and ST.) PT Problem 1 PT Problem #1 Knowledge Deficit PT Goal 1 Goal The patient will be independent in a home exercise program. Target Visit 6 PT Problem 2 PT Problem #2 Pain PT Goal 1 Goal The patient will report no greater than 1/10 low back pain with daily activities including walking up to 200 yards. Target Visit 12 PT Problem 3 PT Problem #3 Impaired Range of Motion PT Goal 1 Goal The patient will demonstrate at 10 degrees of lumbar extension and bilateral lateral flexion to improve daily function. Target Visit 12 PT Problem 4 PT Problem #4 Impaired Functional Mobil PT Goal 1 Goal 1. The patient will demonstrate less than 10% self perceived disability per the Oswestry Back Index. 2. The patient will demonstrate the ability to ambulate at least 1,000 feet during the 6 minute walk test to improve community ambulation. Target Visit 12 PT Problem 5 PT Problem #5 Impaired Strength PT Goal 1 Goal 1. The patient will demonstrate the ability to lift 20 lbs from floor to waist with proper body mechanics. 2. The patient will demonstrate at least 4-/5 upper abdominal, lower abdominal, and lower lumbar extension strength to improve support to the spine. Target Visit 12
--- NOTE | 2023-09-29 10:35 | PTOPEVAL1 ---
Assessment and note entered by Zoya Nguyen, PT Evaluation Information Assessment Status Evaluation Diagnosis s/p lumbar laminectomy Onset 08/09/23 Subjective Information Wily Tong reports he had back surgery on 08/09/23 for a laminectomy of 4 levels. He reports he has minimal pain unless he walks more than 100 yards. Sitting will relieve the pain. He feels he needs to strengthen his core. He reports he had numbness in the left more than right leg prior to surgery and that has resolved. Reported Pain Level Pain Score 4: Self Report Assessment PT Clinical Summary Wily Tong presents 7 weeks s/p lumbar laminectomy of 4 levels. He has difficulty with walking more than 100 yards without back pain. He objectively demonstrates decreased core strength, decreased lumbar AROM, decreased hamstring flexbility, and decreased ambulation endurance. He will benefit from skilled PT to address these limitations. Plan of Care Interventions Electrical Stimulation,Hot Pack/Cold Pack,Manual Therapy,Neuro Re-education,Patient/Caregiver Educati,Therapeutic Activities,Therapeutic Exercise PT Services Indicated Yes Treatment Frequency and 2 times a week for 12 visits Duration These treatments will address the objective and functional deficits as defined above. The patient will be advanced safely and appropriately in order for the patient to progress towards his/her prior level of function. Additional exercises will be introduced and as well as a comprehensive home exercise program upon discharge, if needed, ?to ensure carryover of functional gains achieved in the clinic. This treatment plan has been reviewed and agreement upon by the patient.
--- NOTE | 2023-11-02 09:22 | OPREHPOC ---
Outpatient Therapy Plan of Care This is a Multidisciplinary Plan of Care that may contain components documented by all disciplines (PT, OT, and ST.) PT Problem 1 PT Problem #1 Knowledge Deficit PT Goal 1 Goal The patient will be independent in a home exercise program. Target Visit 6 Progress Met PT Problem 2 PT Problem #2 Pain PT Goal 1 Goal The patient will report no greater than 1/10 low back pain with daily activities including walking up to 200 yards. Target Visit 12 Progress Partially Met Comment continue PT Problem 3 PT Problem #3 Impaired Range of Motion PT Goal 1 Goal The patient will demonstrate at 10 degrees of lumbar extension and bilateral lateral flexion to improve daily function. Target Visit 12 Progress Partially Met Comment continue PT Problem 4 PT Problem #4 Impaired Functional Mobil PT Goal 1 Goal 1. The patient will demonstrate less than 10% self perceived disability per the Oswestry Back Index. -not met 2. The patient will demonstrate the ability to ambulate at least 1,000 feet during the 6 minute walk test to improve community ambulation. -met Target Visit 12 Progress Partially Met Comment continue PT Problem 5 PT Problem #5 Impaired Strength PT Goal 1 Goal 1. The patient will demonstrate the ability to lift 20 lbs from floor to waist with proper body mechanics. 2. The patient will demonstrate at least 4-/5 upper abdominal, lower abdominal, and lower lumbar extension strength to improve support to the spine. Target Visit 12 Progress Partially Met Comment continue
--- NOTE | 2023-11-02 09:22 | PTOPPROG ---
Assessment and note entered by Zoya Nguyen, PT Evaluation Information Assessment Status Progress Diagnosis s/p lumbar laminectomy Onset 08/09/23 Subjective Information Wily Tong reports his right knee is sore today which started yesterday for unknown reasons. He notes he has not had knee pain for 9 years since he got them replaced. He notes his back pain and soreness is about the same since surgery and he feels he is still limited with how long he can walk or stand. Still only walks 100 yards and has to sit and pain resolves. He no longer has numbness. Assessment PT Clinical Summary Wily Tong has completed 10 skilled PT visits following a lumbar laminectomy performed on . He is reporting no big change in his back symptoms since having surgery noting he still feels limited with how long he can stand or walk. He demonstrates objective improvements in lumbar AROM and core strength. He does still have limitations in lumbar AROM as well as core and hip strength. He was able to complete a full 6 minute walk test but c/o pain after 600 ft and his gait mechanics worsened during the second half. He will continue to benefit from skilled PT to further address these limitations. Plan of Care Interventions Patient/Caregiver Educati,Therapeutic Activities, Therapeutic Exercise PT Services Indicated Yes Treatment Frequency and Continue POC for 2 additional visits Duration These treatments will address the objective and functional deficits as defined above. The patient will be advanced safely and appropriately in order for the patient to progress towards his/her prior level of function. Additional exercises will be introduced and as well as a comprehensive home exercise program upon discharge, if needed, ?to ensure carryover of functional gains achieved in the clinic. This treatment plan has been reviewed and agreement upon by the patient.
--- NOTE | 2023-11-09 09:15 | OPREHPOC ---
Outpatient Therapy Plan of Care This is a Multidisciplinary Plan of Care that may contain components documented by all disciplines (PT, OT, and ST.) PT Problem 1 PT Problem #1 Knowledge Deficit PT Goal 1 Goal The patient will be independent in a home exercise program. Target Visit 6 Progress Met PT Problem 2 PT Problem #2 Pain PT Goal 1 Goal The patient will report no greater than 1/10 low back pain with daily activities including walking up to 200 yards. Target Visit 12 Progress Partially Met PT Problem 3 PT Problem #3 Impaired Range of Motion PT Goal 1 Goal The patient will demonstrate at 10 degrees of lumbar extension and bilateral lateral flexion to improve daily function. Target Visit 12 Progress Met PT Problem 4 PT Problem #4 Impaired Functional Mobil PT Goal 1 Goal 1. The patient will demonstrate less than 10% self perceived disability per the Oswestry Back Index. -not met 2. The patient will demonstrate the ability to ambulate at least 1,000 feet during the 6 minute walk test to improve community ambulation. -met Target Visit 12 Progress Partially Met PT Problem 5 PT Problem #5 Impaired Strength PT Goal 1 Goal 1. The patient will demonstrate the ability to lift 20 lbs from floor to waist with proper body mechanics. -met 2. The patient will demonstrate at least 4-/5 upper abdominal, lower abdominal, and lower lumbar extension strength to improve support to the spine. -met Target Visit 12 Progress Met
--- NOTE | 2023-11-09 09:16 | PTOPDC ---
Assessment and note entered by Zoya Nguyen, PT Evaluation Information Assessment Status Discharge Diagnosis s/p lumbar laminectomy Onset 08/09/23 Subjective Information Wily Tong reports that his back pain is about the same as it was before surgery. He is no longer having numbness like he did prior to surgery but his pain is the same. He is still limited with walking to 100 yards and then needs to sit. When he sits, the pain resolves. He notes he does not lift anything too heavy. Reported Pain Level Pain Score 0: Self Report Assessment PT Clinical Summary Wily Tong has completed 12 skilled PT visits following a lumbar laminectomy performed on . He is reporting no significant change in pain but he does no longer have numbness in his legs. He continues to report that his walking is limited to 100 yards and then he has to sit to decrease his pain levels. He objectively demonstrates improved lumbar AROM, improved core and hip strength, and improved tolerance to walking. He was able to complete 1,200 feet during the 6 minute walk test without taking a break but does have increased pain. He has met all but one goal ( pain goal) since initiating PT. He will be discharged to an independent home exercise program . Plan of Care PT Services Indicated No
== END 2023-11-09 11:20 | disposition home or self-care (01) ==
LOC: CHSPT 09:41
PROVIDERS: Visit Provider Neurological Surgery
DX: M48.062 Spinal stenosis, lumbar region with neurogenic claudication (principal); Z98.890 Other specified postprocedural states
CPT/HCPCS: 97110; 97161; 97750

== ENCOUNTER → 2023-11-08 10:58 | Outpatient (REF) | payer MEDICARE, SELFPAY | LOC: ANHLAB 10:58 | PROVIDERS: Visit Provider Plastic Surgery | DX: L72.0 Epidermal cyst (principal); L72.11 Pilar cyst | CPT/HCPCS: 88305 ==

== ENCOUNTER 2024-06-28 10:01 | Outpatient (CLI) | payer MEDICARE, SELFPAY ==
[2024-06-28 10:20] LABS: Basophils Absolute Auto 0.09 K/mm3 (0.00-0.10); Eosinophils Percent Auto 5.7 % (1.0-6.0); Hematocrit 53.1 % (37.0-46.0); Hemoglobin 17.3 g/dL (12.4-15.3); Immature Granulocyte Absolute 0.05 K/mm3 (0.00-0.00); Immature Granulocyte Percent A 0.6 % (0.0-0.0); Lymphocytes Absolute Auto 3.19 K/mm3 (1.10-4.50); Lymphocytes Percent Auto 36.1 % (18.0-42.0); Mean Corpuscular HGB Conc 32.6 g/dL (32-36); Mean Corpuscular Hemoglobin 30.5 pg (27.0-31.0); Mean Corpuscular Volume 93.5 fL (78.0-102.0); Mean Platelet Volume 11.5 fl (8.7-11.0); Monocytes Absolute Auto 0.83 K/mm3 (0.10-0.90); Monocytes Percent Auto 9.4 % (2.0-11.0); Neutrophils Absolute Auto 4.18 K/mm3 (1.70-7.20); Neutrophils Percent Auto 47.2 % (50.0-70.0); Platelet Count Result 166 K/mm3 (150-420); Red Blood Count 5.68 M/mm3 (4.70-6.10); Red Cell Distribution Width 14.6 % (11.6-14.4); White Blood Count 8.8 K/mm3 (4.8-10.8)
--- OUTSIDE RECORDS SUMMARY | 2024-06-28 11:01 | XMS_ITS | Continuity of Care Document ---
Author Organization [facility] Address [id number] [place] [address] [address] [place] [address] Phone Care Team Providers Care Lumber Chain Offbearer Name Role Phone Jeb Ross MD, FACS Unavailable Unavailab le Advance Directives Directive Yes / No Effective Date File Name No Information Encounters Encounter Description Practice Location Reason(s) For Visit Diagnoses Date Provider Providers Copied on Encounter Located within [facility], [address] [facility] [place], [place], [place], [id number], tel:[phone] [facility] No Information Cody Russ. [id number] [place] [address], [address], [place], [place], [id number], [place]. tel:[phone] Family History Family Member Type Diagnosis Age At Onset No Information Payers Payer name Insurance type Covered republican ID Authoriza tion(s) [facility] [id number] Social History Type Description Quantity Date Captured Comments Sex Male Smoking Status No Information Chief Complaint And Reason For Visit No Information Reason For Referral Reason For Referral No Information History Of Present Illness Encounter Date Complaint History Of Prese nt Illness No Information Functional Status Date Functional Assessmen t No Information Instructions Date Instruction Additional Infor mation No Information Assessments Type Assessment Date No Information Patient Care Teams Name Effective Dates (start - stop) Status Members No Information
--- OUTSIDE RECORDS SUMMARY | 2024-06-28 11:01 | XMS_ITS | Referral Summary ---
Author Organization [facility] [employer] Address [address] [facility] [place] [address] Care Team Providers Care Residential Concierge Name Role Phone Denver Platt DO Primary Care Provider [phone] Source Comments [facility] [employer],non-owned Affiliates and Associated Physician Practices is amultiple site organization consisting of ambulatory clinics and hospital sitesin [place], [place], [place] and [place]. This disclosure is being madepursuant to the Care Everywhere program and may not contain all information available regarding this patient. Last updated 18.[employer] Allergies No known active allergies Medications * Be aware that medications may not be up to date on this document. Alwaysverify current medications with the patient. Medication Sig Dispensed Refills Start Date End Date Status AMLODIPINE BESYLATE PO Ac tive FENOFIBRATE PO Active Social History Tobacco Use Types Packs/Day Years Used Date Smoking Tobacco: Every Day Smokeless Tobacco: Never Sex and Gender Information Value Date Recorded Sex Assigned at Not on file Gender Identity Not on file Sexual Orientation Not on file Last Filed Vital Signs Vital Sign Reading Time Taken Comments Blood Pressure 142/76 11/22/2016 3:23 PM CDT Pulse 81 11/22/2016 3:23 PM CDT Temperature 36.9 C (98.4 F) 11/22/2016 3:23 PM CDT Respiratory Rate 16 11/22/2016 3:23 PM CDT Oxygen Saturation 97% 11/22/2016 3:23 PM CDT Inhaled Oxygen Concentration - - Weight 104.3 kg (230 lb) 11/22/2016 3:23 PM CDT Height 185.4 cm (6' 1 ) 11/22/2016 3:23 PM CDT Body Mass Index 30.34 11/22/2016 3:23 PM CDT Plan of Treatment Not on file Care Teams Residential Concierge Relationship Specialty Start Date End Date Denver Platt DO [address] [place] [address] PCP - General 06/29/22
--- OUTSIDE RECORDS SUMMARY | 2024-06-28 11:01 | XMS_ITS | Patient Health Summary ---
Author Organization [facility] Address [address] [place] [address] Care Team Providers Care Public Relations Analyst Name Role Phone Denver Platt DO Primary Care Provider [phone] Note from [employer] [facility] [facility],non-owned Affiliates and Associated Physician Practices is amultiple site organization consisting of ambulatory clinics and hospital sitesin [place], [place], [place] and [place]. This disclosure is being madepursuant to the Care Everywhere program and may not contain all information available regarding this patient. Last updated 18.[employer] Allergies No known active allergies Medications * Be aware that medications may not be up to date on this document. Alwaysverify current medications with the patient. * AMLODIPINE BESYLATE PO * FENOFIBRATE PO Social History Tobacco Use Types Packs/Day Years [...] Mass Index 30.34 11/22/2016 3:23 PM CDT Care Teams Public Relations Analyst Relationship Specialty Start Date End Date Denver Platt DO [address] [place] [address] PCP - General 06/29/22
--- OUTSIDE RECORDS SUMMARY | 2024-06-28 11:01 | XMS_ITS | Clinical Summary ---
Author Organization [facility] [employer] Address [address] [place] [address] Care Team Providers Care Machine Boss Name Role Phone Denver Platt DO Primary Care Provider [phone] Source Comments [facility] [employer],non-owned Affiliates and Associated Physician Practices is amultiple site organization consisting of ambulatory clinics and hospital sitesin [place], [place], [place] and [place]. This disclosure is being madepursuant to the Care Everywhere program and may not contain all information available regarding this patient. Last updated 18.[employer] Allergies No known active allergies Medications * [...] 11/22/2016 3:23 PM CDT Plan of Treatment Health Maintenance Due Date Last Done Comments COLOGUARD (AGES 45-75) - COL ON CA SCREENING 1957 COLON MONITORING 1957 COLONOSCOPY - COLON CA SCREENING 1957 CT COLONOGRAPHY - COLON CA SCREENING 1957 Colorectal Cancer Screening 1957 FIT - COLON CA SCREENING 1957 FLEX SIG - COLON CA SCREENING 1957 LIPID TESTING 1957 HEPATITIS C SCREENING 10/06/1975 DTAP/TDAP/TD VACCINES (1 - Tdap) 1976 PNEUMOCOCCAL VACCINE 50+ (1 of 2 - PCV) 1976 ZOSTER VACCINE (1 of 2) 10/11/2007 AAA SCREENING 2022 COVID-19 VACCINE (1 - 2023-2 5 season) 2024 INFLUENZA VACCINE (#1) 2024 DEPRESSION SCREENING 05/17/2024 MEDICARE AWV CALENDAR YEAR 2024 Respiratory Syncytial Virus (RSV) Vaccine Pt: or over 60 yrs (1 - 1-dose 75+ series) 2032 HEPATITIS B VACCINE Aged Out No longe r eligible based on patient's age to complete this topic HIB VACCINE Aged Out No longer eligi ble based on patient's age to complete this topic HPV VACCINE Aged Out No longer eligi ble based on patient's age to complete this topic MENINGOCOCCAL (Group B) VACCINE Aged Out No longer eligible based on patient's age to complete this topic MENINGOCOCCAL VACCINE Aged Out No juan tamara eligible based on patient's age to complete this topic Care Teams Machine Boss Relationship Specialty Start Date End Date Denver Platt DO [address] [place] [address] PCP - General 06/29/22
--- OUTSIDE RECORDS SUMMARY | 2024-06-28 11:01 | XMS_ITS | Clinical Summary ---
Author Organization [facility] Address [address] [place] [address] Care Team Providers Care Washing Machine Loader Name Role Phone HermelindoDenver manley Primary Care Provider [phone] Allergies No known active allergies Medications amLODIPine (NORVASC) 10 MG tablet Take 1 tablet (10 mg total) by mouth daily. Active omeprazole (PRILOSEC) 40 MG capsule Take 1 capsule (40 mg total) by mouth daily. Active metoprolol succinate ER (TOPROL-XL) 25 MG 24 hr tablet Take 1 tablet (25 mg total) by mouth daily. Active furosemide (LASIX) 40 MG tablet Take 1 tablet (40 mg total) by mouth daily. Active rosuvastatin (CRESTOR) 20 MG tablet Take 1 tablet (20 mg total) by mouth nightly at bedtime. Active methocarbamol (ROBAXIN) 500 MG tablet Take 1 tablet (500 mg total) by mouth 4 (four) times daily. Active oxyCODONE immediate release (ROXICODONE) 5 MG immediate release tablet Take 1 tablet (5 mg total) by mouth every 4 (four) hours as needed for Pain. Active dapagliflozin (FARXIGA) 10 MG tablet Take 1 tablet (10 mg total) by mouth daily. Active potassium chloride CR (KLOR-CON M) 10 MEQ tablet Take 1 tablet (10 mEq total) by mouth 2 (two) times daily. Active meloxicam (MOBIC) 15 MG tablet Take 1 tablet (15 mg total) by mouth daily. Active cyclobenzaprine (FLEXERIL) 10 MG tablet Take 1 tablet (10 mg total) by mouth 3 (three) times daily as needed for Muscle Spasms. Active aspirin 81 MG chewable tablet Chew 1 tablet (81 mg total) by mouth daily. Active Active Problems No known active problems Encounters Date Type Department Care Team Description 05/31/2024 11:14 AM ROVING MACHINE OPERATOR - 05/31/2024 11:45 AM ROVING MACHINE OPERATOR [facility] [place] [address] [place] [address] Estefani Kim MD extraction cataract LEFT eye with lens implant 05/31/2024 11:07 AM ROVING MACHINE OPERATOR Anesthesia Event [facility] [place] [address] [place] [address] Myriam Mendiola, APICULTURE TEACHER 05/31/2024 10:09 AM ROVING MACHINE OPERATOR - 05/31/2024 12:08 PM ROVING MACHINE OPERATOR Hospital Encounter [facility] [address] [place] [address] Estefani Kim MD Discharge Disposition: Home or Self Care (Routine Discharge) 05/31/2024 Travel 05/24/2024 Travel 05/03/2024 11:08 AM ROVING MACHINE OPERATOR - 05/03/2024 11:37 AM ROVING MACHINE OPERATOR [facility] [address] [place] [address] Estefani Kim MD extraction cataract RIGHT eye with lens implant 05/03/2024 11:00 AM ROVING MACHINE OPERATOR Anesthesia Event [facility] [address] [place] [address] Denzel Francois, APICULTURE TEACHER 05/03/2024 9:18 AM ROVING MACHINE OPERATOR - 05/03/2024 12:43 PM ROVING MACHINE OPERATOR Hospital Encounter [facility] [place] [address] [place] [address] Estefani Kim MD Discharge Disposition: Home or Self Care (Routine Discharge) 05/03/2024 Travel 04/28/2024 Travel from Last 3 Months Social History Tobacco Use Types Packs/Day Years Used Date Smoking Tobacco: Former Cigarettes Smokeless Tobacco: Never Alcohol Use Standard Drinks/Week Comments Yes 0 (1 standard drink = 0.6 oz pur e alcohol) rarely Sex and Gender Information Value Date Recorded Sex Assigned at Male 05/31/2024 10:08 AM ROVING MACHINE OPERATOR Legal Sex Male 1:11 PM ROVING MACHINE OPERATOR Gender Identity Not on file Sexual Orientation Not on file Last Filed Vital Signs Vital Sign Reading Time Taken Comments Blood Pressure 133/63 05/31/2024 11:50 AM ROVING MACHINE OPERATOR Pulse 64 05/31/2024 11:50 AM ROVING MACHINE OPERATOR Temperature 36.2 C (97.1 F) 05/31/2024 11:50 AM ROVING MACHINE OPERATOR Respiratory Rate 16 05/31/2024 11:50 AM ROVING MACHINE OPERATOR Oxygen Saturation 97% 05/31/2024 11:50 AM ROVING MACHINE OPERATOR Inhaled Oxygen Concentration - - Weight 108.9 kg (240 lb) 05/31/2024 10:28 AM ROVING MACHINE OPERATOR Height 185.4 cm (6' 1 ) 05/31/2024 10:28 AM ROVING MACHINE OPERATOR Body Mass Index 31.66 05/31/2024 10:28 AM ROVING MACHINE OPERATOR Plan of Treatment Health Maintenance Due Date Last Done Comments Colorectal Cancer Screening Colonoscopy (10 Years) 1957 Hepatitis C 10/11/1975 Zoster Vaccines (1 of 2) 10/11/2007 DTaP, Tdap and Td Vaccines (1 - Tdap) 09/18/2012 09/17/2012 AAA SCREENING 2022 Pneumococcal Vaccine: 65+ Years (1 of 1 - PCV) 2022 RSV Immunization or 60+ Years (1 - 1-dose 75+ series) 2032 COVID-19 Vaccine Completed 02/11/2024, , 03/10/2022, Additional history exists Influenza Adult Completed 02/11/2024, 05/2022, 03/10/2022, Additional history exists Meningococcal B Vaccine Aged Out No l onger eligible based on patient's age to complete this topic Meningococcal Vaccine Aged Out No juan tamara eligible based on patient's age to complete this topic RSV Immunizations Under 20 Months Aged Out No longer eligible based on patient's age to complete this topic Medical Devices Implanted Type Area Plate Grinder Device Identifier Shelf Expiration Date Model / Serial / Lot Tecnis 1-Piece Iol Implanted:Qty: 1 on 05/03/2024 by Estefani Kim MD at [facility] Right: Eye [employer] [id number] 06/16/2026 [id number] / [id number] / [id number] Tecnis 1-Piece Iol W/ Tecnis Simplicity Implanted:Qty: 1 on 05/31/2024 by Estefani Kim MD at [facility] [employer] 06/19/2026 [id number] / [id number] / Procedures Procedure Name Priority Date/Time Associated Diagnosis Comments REMV CATARACT EXTRACAP,INSERT LENS 05/31/2024 11:02 AM ROVING MACHINE OPERATOR h25.9 REMV CATARACT EXTRACAP,INSERT LENS 05/03/2024 10:54 AM ROVING MACHINE OPERATOR h25.9 from Last 3 Months Insurance [facility] Care Teams Washing Machine Loader Relationship Specialty Start Date End Date Denver Platt DO [address] [place] [address] PCP - General FAMILY PRACTICE 04/28/24
--- OUTSIDE RECORDS SUMMARY | 2024-06-28 11:02 | XMS_ITS | Referral Summary ---
Author Organization [facility] Address [address] [place] [address] Care Team Providers Care Conditioner Tender Name Role Phone HermelindoDenver manley Acosta Primary Care Provider Allergies No known active allergies Medications amLODIPine (NORVASC) 10 mg tablet Take 1 tablet (10 mg total) by mouth every morning 03/11/2018 Active rosuvastatin (CRESTOR) 20 mg tablet Take 1 tablet (20 mg total) by mouth every morning 05/15/2018 Active Farxiga 10 mg tablet Take 1 tablet (10 mg total) by mouth every morning 04/14/2022 Active furosemide (LASIX) 40 mg tablet Take 1 tablet (40 mg total) by mouth daily 04/04/2022 Active meloxicam (MOBIC) 15 mg tablet Take 1 tablet (15 mg total) by mouth every morning 03/19/2022 Active metoprolol XL (TOPROL-XL) 25 mg extended release tablet Take 1 tablet (25 mg total) by mouth every morning 04/03/2022 Active omeprazole (PriLOSEC) 40 mg capsule Take 1 capsule (40 mg total) by mouth every morning 03/19/2022 Active potassium chloride ER 10 mEq CR tablet Take 1 tablet/capsu le (10 mEq total) by mouth every morning 03/19/2022 Active cholecalciferol 25 mcg (1,000 unit) tablet Take 5 tablets (5,000 Units total) by mouth daily Active methocarbamoL (ROBAXIN) 500 mg tablet Take 2 tablets (1,000 mg total) by mouth every 6 (six) hours as needed for muscle spasms 40 tablet 08/09/2023 Active oxyCODONE (ROXICODONE) 5 mg immediate release tabletIndicatio ns:Pain Take 1 tablet (5 mg total) by mouth every 6 (six) hours as needed for pain 28 tablet 08/09/2023 Active senna-docusate (PERICOLACE) 8.6-50 mgIndications:c onstipation Take 1 tablet by mouth 2 (two) times a day 30 tablet 08/09/2023 Active Active Problems Problem Noted Date Diagnosed Date 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 His symptoms seem to be mixed etiology given his lower lumbosacral spine disease as well as possibly peripheral vascular disease. Bilateral lower extremity segmental Dopplers ordered. I have recommended follow-up with his PCP to evaluate his lower back prior to any angiography as majority of his symptoms are positional and he still able to ride a stationary bike for multiple miles per week. Continue ASA and statin therapy. Surgical follow-up care 11/13/2014 Abnormal electrocardiogram 10/16/2014 Backache 10/16/2014 Hypercholesterolemia 10/16/2014 Assessment & Plan (05/07/2022 7:20 AM NURSING EDUCATION CONSULTANT): Crestor Osteoarthrosis 10/16/2014 Primary hypertension 10/16/2014 Assessment & Plan (05/07/2022 7:20 AM NURSING EDUCATION CONSULTANT): Lasix Knee pain 08/29/2014 Immunizations Name Administration Dates Next Due Influenza, Unspecified 02/14/2023 Social History Tobacco Use Types Packs/Day Years Used Date Smoking Tobacco: Former Cigarettes Q uit: 05/2017 Smokeless Tobacco: Never Tobacco Cessation:Counseling Given: Not Answered Alcohol Use Standard Drinks/Week Comments Yes 0 (1 standard drink = 0.6 oz pur e alcohol) rare AUDIT-C Answer Date Recorded Q1: How often do you have a drink containing alc ohol? Monthly or less 07/22/2023 Q2: How many drinks containi ng alcohol do you have on a typical day when you are drinking? 1 or 2 07/22/2023 Q3: How often do you have si x or more drinks on one occasion? Never 07/22/2023 Personal Safety Answer Date Recorded Have you ever been in or are you currently in a harmful physical or emotional relationship or is someone making you feel afraid or unsafe? 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 MEDICARE BLUE ANTHEM MEDICARE PREFERRED HMO O Advance Directives For more information, please contact: [phone] * Full Code (Latest Code Status on File) Date Activated Date Inactivated Comments 08/09/2023 2:16 PM 08/10/2023 3:08 PM Care Teams Conditioner Tender Relationship Specialty Start Date End Date Denver Platt DO [address] [place] [address] PCP - General Family Medicine 05/27/22
--- OUTSIDE RECORDS SUMMARY | 2024-06-28 11:02 | XMS_ITS | Clinical Summary ---
Author Organization [facility] Address [address] [place] [address] Care Team Providers Care Apartment Community Manager Name Role Phone HermelindoDenver manley Primary Care Provider Allergies No known active [...] 05/07/2022 Assessment & Plan (05/07/2022 7:20 AM CONCRETE BOOM PUMP OPERATOR): Right lower extremity moderate occlusive disease, left lower extremity mild occlusive disease based on his ABIs done at [facility]. His symptoms seem to be mixed etiology [...] 10/16/2014 Assessment & Plan (05/07/2022 7:20 AM CONCRETE BOOM PUMP OPERATOR): Crestor Osteoarthrosis 10/16/2014 Primary hypertension 10/16/2014 Assessment & Plan (05/07/2022 7:20 AM CONCRETE BOOM PUMP OPERATOR): Lasix Knee pain 08/29/2014 Immunizations Name Administration Dates Next Due Influenza, Unspecified 02/14/2023 Surgical History Surgery Date Site/Laterality Comments BACK SURGERY 05/17/1991 - 05/16/1992 HERNIA REPAIR KNEE SURGERY CARPAL TUNNEL RELEASE 05/17/2017 - 05/16/2018 FLUORO GUIDED ASPIRATION OR INJECTION LARGE JOINT LEFT 06/10/2018 Left Medical History Medical History Date Comments Arthritis Hypercholesteremia Pseudoclaudication syndrome Family History Medical History Relation Name Comments Hypertension Brother 1 Family history of hypertension - (Added by TW Conv) Gout Brother 2 Family history of gout - (Added by TW Conv) Stroke Brother 3 Family history of cerebrovascular accident - (Added by TW Conv) Hypertension Father Family history of hypertension - (Added by TW Conv) Arthritis Mother Family history of arthritis - (Added by TW Conv) Hypertension Sister Family history of hypertension - (Added by TW Conv) Relation Name Status Comments Brother 1 Brother 2 Brother 3 Father Mother Sister Social History Tobacco Use Types Packs/Day Years [...] on file Legal Sex Male 5:51 AM CONCRETE BOOM PUMP OPERATOR Gender Identity Not on file Sexual Orientation Not on file 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 on file Not on file Obstetrics History Last Filed Vital Signs Vital Sign Reading [...] 08/09/2023 7:51 AM CDT Plan of Treatment Health Maintenance Due Date Last Done Comments Colon Cancer Screening-Colonoscopy 1955 Depression Screening 1955 Hepatitis C Screening 1955 Prostate Cancer Screening-PSA 1957 Hepatitis B Screening 10/11/1975 Zoster Vaccine (1 of 2) 10/11/2007 DTaP/Tdap/Td Vaccine (1 - Tdap) 09/18/2012 3 Abdominal Aortic Aneurysm (A AA) Screen 2022 Pneumococcal vaccine 65+ (1 of 1 - PCV) 2022 Well Visit 65+ 2022 Covid-19 Vaccine (6 - 2023-2 5 season) 2024 03/10/2022, 08/20/2021, 02/18/2021, Additional history exists Influenza Vaccine (#1) 2024 , 03/10/2022, 02/18/2021 Fall Risk Assessment 08/09/2024 08/10/2023 Insurance ([employer]) [address] [place], [place] [id number] [place] [address] BLUE ANTHEM MEDICARE PREFERRED HMO PPO AETNA MEDICARE [facility] MEDICARE PREFERRED HMO PPO Advance Directives For more information, please contact: [phone] * Full Code (Latest Code Status on File) Date Activated Date Inactivated Comments 08/09/2023 2:16 PM 08/10/2023 3:08 PM Care Teams Apartment Community Manager Relationship Specialty Start Date End Date Denver Platt DO [address] [place] [address] PCP - General Family Medicine 05/27/22
--- OUTSIDE RECORDS SUMMARY | 2024-06-28 11:02 | XMS_ITS | CONTINUITY OF CARE DOCUMENT ---
Author Name chi mireles Address Unknown Organization [facility] Address [address] [place] [address] Phone [phone] Care Team Providers Care Irrigation Teacher Name Role Phone Zaire GODFREY, Seth Unavailable [phone] MELISSA TALAMANTES MD Unavailable [phone] MELISSA TALAMANTES MD Unavailable [phone] PROBLEMS Condition Status Date Provider Notes Abnormal electrocardiogram active Seth Tai MD Osteoarthrosis active Seth Tai MD Back pain, unspecified active Seth dykes MD Hypercholesterolemia active Seth Tai MD HTN essential active Seth Tai MD ENCOUNTERS Date Type Provider Location Encounter Diag nosis 2 - 3 In-person encounter Office Visit Seth Tai MD [facility] HTN essentialHypercholesterolemiaBack pain, unspecifiedOsteoarthrosisAbnormal electrocardiogram VITAL SIGNS Date Observation Value Provider blood pressure, diastolic 80 mm[Hg] Jimmy Tai MD blood pressure, systolic 160 mm[Hg] Claire Tai MD Body Mass Index (Ratio) 31.00 kg/m2 Souleymane Tai MD pulse rate 85 /min Seth Tai MD oxygen saturation, oximetry 95 % Seth Tai MD respiratory rate E&M 16 /min Foster Tai MD weight E&M 235 [lb_av] Seth Tai MD height E&M 73 [in_i] Seth Tai MD ALLERGIES No Known Drug Allergies HISTORY OF MEDICATION USE Medication Status Instructions Dates Provider Indications Com ments MUPIROCIN 2 % EXTERNAL OINTMENT active Seth Tai MD AMLODIPINE BESYLATE 10 MG ORAL TABLET active Seth Tai MD FENOFIBRATE 160 MG ORAL TABLET active ONE TAB. DAILY Seth Tai MD SOCIAL HISTORY Date Observation Value Provider smoking/tobacco cess ation, patient education and counseling yes Seth Tai MD smoking status Current every day smoker M grayson Tia MD social history reviewed E&M revi ewed - no changes required Seth Tai MD INSURANCE PROVIDERS Payer name Policy type / Coverage type [place] red democrat ID [facility] [email or web address] [id number] TREATMENT PLAN Date Name Performer printed to emily: H is updated medication list for this problem includes: Amlodipine Besylate 10 Mg Oral Tabs (Amlodipine besylate) Seth Tai MD printed to emily ahuja MD printed to emily ahuja MD printed to emily: H is updated medication list for this problem includes: Fenofibrate 160 Mg Tabs (Fenofibrate) ..... One tab. daily Seth Tai MD printed to emily: O rders: S TR - Adenosine ([id number]) His updated medication list for this problem includes: Amlodipine Besylate 10 Mg Oral Tabs (Amlodipine besylate) Seth Tai MD Date Name Complete Echo STR - Adenosine
[2024-06-28 11:25] LABS: Alanine Aminotransferase 44 U/L (16-63); Albumin Level 4.7 g/dL (3.4-5.0); Alkaline Phosphatase 138 U/L (46-116); Anion Gap 10 mmol/L (4-12); Aspartate Amino Transferase 34 U/L (15-37); Bilirubin,Total 0.7 mg/dL (0.00-1.00); Blood Urea Nitrogen 13 mg/dL (7-18); Calcium 9.6 mg/dL (8.5-10.1); Carbon Dioxide 33 mmol/L (21-32); Chloride 101 mmol/L (98-108); Cholesterol 160 mg/dL (0-200); Estimated Glomerular Filt Rate > 60; Glucose 127 mg/dL (70-99); HDL Direct 39 mg/dL (40-60); LDL Cholesterol Calculated 78 mg/dL (<130); Osmolality Calculated 300 mOsm/kg (285-295); Potassium 4.3 mmol/L (3.5-5.1); Sodium 144 mmol/L (136-145); Total Protein 7.9 g/dL (6.4-8.2); Triglycerides 215 mg/dL (0-150)
[2024-06-28 11:26] LABS: Thyroid Stimulating Hormone Reflex 2.08 u/IU/mL (0.36-3.74)
== END 2024-06-28 10:02 | disposition home or self-care (01) ==
PROVIDERS: PCP Family Medicine; Visit Provider Family Medicine
DX: E03.9 Hypothyroidism, unspecified (principal); I50.30 Unspecified diastolic (congestive) heart failure
CPT/HCPCS: 36415; 80053; 80061; 84443; 85025

== ENCOUNTER 2024-12-20 17:46 | Emergency (ER) | payer MEDICARE, SELFPAY ==
[2024-12-20] VITALS (23 sets, daily range): BP systolic 135–161; BP diastolic 72–88; PULSE 97; RESP 18; TEMP 37.6; O2SAT 90–97
--- NOTE | ~2024-12-20 | XR_ITS ---
CHEST RADIOGRAPH CLINICAL HISTORY: Shortness of breath . COMPARISON: 06/25/2020 TECHNIQUE: Single portable view of the chest. FINDINGS The cardiomediastinal silhouette is unremarkable. Coarse interstitial markings within the right hemithorax greater than left. This pattern is unchanged from 2020. The remainder of the lungs are clear. IMPRESSION: Coarse interstitial lung markings, right greater than left. Reviewed, dictated and finalized at location A.
--- OUTSIDE RECORDS SUMMARY | 2024-12-20 17:48 | XMS_ITS | Clinical Summary ---
Author Organization [facility] [employer] Address [address] [place] [address] Care Team Providers Care Wound/Ostomy Nurse Name Role Phone Denver Platt DO Primary Care Provider [phone] Source Comments [facility] [employer],non-owned Affiliates and Associated Physician Practices is amultiple site organization consisting of ambulatory clinics and hospital sitesin [place], [place], [place] and [place]. This disclosure is being madepursuant to the Care Everywhere program and may not contain all information available regarding this patient. Last updated 18.[facility] [employer] Allergies No known active allergies Medications * Be aware that medications may not be up to date on this document. Alwaysverify current medications with the patient. AMLODIPINE BESYLATE PO Active FENOFIBRATE PO Activ e Social History Tobacco Use Types Packs/Day Years Used Date Smoking Tobacco: Every Day Smokeless Tobacco: Never Sex and Gender Information Value Date Recorded Sex Assigned at Not on file Legal Sex Male 10:50 AM CDT Gender Identity Not on file Sexual Orientation [...] 3:23 PM CDT Height 185.4 cm (6' 1) 11/22/2016 3:23 PM CDT Body Mass Index [...] VACCINE (1 - 2023-2 5 season) 2024 DEPRESSION SCREENING 05/17/2024 MEDICARE AWV CALENDAR YEAR 2024 INFLUENZA VACCINE (#1) 2025 Respiratory Syncytial Virus (RSV) Vaccine Pt: or [...] to complete this topic MENINGOCOCCAL (Group B) VACC INE SHARED DECISION-MAKING Aged Out No longer eligibl e based on patient's age to complete this topic MENINGOCOCCAL GROUPS A/C/Y/W VACCINE Aged Out No longer eligible b ased on patient's age to complete this topic Insurance [employer] ANTHEM * Guarantor: GÓMEZ TONG Account Type Relation to Patient Date of Phone Billing Address Personal/Family [address] [place] [address] ANTHEM * Guarantor: GÓMEZ TONG Account Type Relation to Patient Date of Phone Billing Address Personal/Family [address] [place] [address] ANTHEM * Guarantor: GÓMEZ TONG Account Type Relation to Patient Date of Phone Billing Address Personal/Family [address] [place] [address] ANTHEM * Guarantor: GÓMEZ TONG Account Type Relation to Patient Date of Phone Billing Address Personal/Family [address] [place] [address] ANTHEM * Guarantor: GÓMEZ TONG Account Type Relation to Patient Date of Phone Billing Address Personal/Family [address] [place] [address] ANTHEM * Guarantor: GÓMEZ TONG Account Type Relation to Patient Date of Phone Billing Address Personal/Family [address] [place] [address] ANTHEM Care Teams Wound/Ostomy Nurse Relationship Specialty Start Date End Date Denver Platt DO [address] [place] [address] PCP - General 06/29/22
--- OUTSIDE RECORDS SUMMARY | 2024-12-20 17:48 | XMS_ITS | Clinical Summary ---
Author Organization [facility] Address [address] [place] [address] Care Team Providers Care Channel Cementer Name Role Phone HermelindoDenver manley Primary Care Provider [phone] Allergies No known active allergies Medications amLODIPine [...] Active Active Problems No known active problems Social History Tobacco Use Types Packs/Day Years Used Date Smoking Tobacco: Former Cigarettes Smokeless Tobacco: Never Alcohol Use Standard Drinks/Week Comments Yes 0 (1 standard drink = 0.6 oz pur e alcohol) rarely Sex and Gender Information Value Date Recorded Sex Assigned at Male 05/31/2024 10:08 AM GEOLOGICAL MANAGER Legal Sex Male 1:11 PM GEOLOGICAL MANAGER Gender Identity Not on file Sexual Orientation Not on file Last Filed Vital Signs Vital Sign Reading Time Taken Comments Blood Pressure 133/63 05/31/2024 11:50 AM GEOLOGICAL MANAGER Pulse 64 05/31/2024 11:50 AM GEOLOGICAL MANAGER Temperature 36.2 C (97.1 F) 05/31/2024 11:50 AM GEOLOGICAL MANAGER Respiratory Rate 16 05/31/2024 11:50 AM GEOLOGICAL MANAGER Oxygen Saturation 97% 05/31/2024 11:50 AM GEOLOGICAL MANAGER Inhaled Oxygen Concentration - - Weight 108.9 kg (240 lb) 05/31/2024 10:28 AM GEOLOGICAL MANAGER Height 185.4 cm (6' 1) 05/31/2024 10:28 AM GEOLOGICAL MANAGER Body Mass Index 31.66 05/31/2024 10:28 AM GEOLOGICAL MANAGER Plan of Treatment Health Maintenance Due Date Last Done Comments Colorectal Cancer Screening Colonoscopy (10 Years) 1955 Hepatitis C 10/11/1975 Pneumococcal Vaccine: 50+ Years (1 of 1 - PCV) 10/11/2007 Zoster Vaccines (1 of 2) 10/11/2007 DTaP, Tdap and Td Vaccines (1 - Tdap) 09/18/2012 09/17/2012 AAA SCREENING 2022 COVID-19 Vaccine ( season) 2024 02/11/2024, 03/29/2023, 03/10/2022, Additional history exists RSV Immunization or 60+ Years (1 - 1-dose 75+ series) 2032 Meningococcal B Vaccine Aged Out No l onger eligible based on patient's age to complete this topic Meningococcal Vaccine Aged Out No juan tamara eligible based on patient's age to complete this topic RSV Immunizations Under 20 Months Aged Out No longer eligible based on patient's age to complete this topic Medical Devices Implanted Type Area Diagnostics Tech Device Identifier Shelf Expiration Date Model / Serial / Lot Tecnis 1-Piece Iol Implanted:Qty: 1 on 05/03/2024 by Estefani Kim MD at [facility] Right: Eye [employer] [id number] 06/16/2026 [id number] / [id number] / [id number] Tecnis 1-Piece Iol W/ Tecnis Simplicity Implanted:Qty: 1 on 05/31/2024 by sEtefani Kim MD at [facility] [employer] 06/19/2026 [id number] / [id number] / Insurance [employer] Member Subscriber Plan / Payer (Ef fective 2023-Present) Name:Wily Tong Relation to Subscriber:Self Name:Wily Tong Payer ID:Not on file Group ID:[id number] Type:Not on file Address: [address] [place] [address] Care Teams Channel Cementer Relationship Specialty Start Date End Date Denver Platt DO [address] [place] [address] PCP - General FAMILY PRACTICE 04/28/24
--- OUTSIDE RECORDS SUMMARY | 2024-12-20 17:48 | XMS_ITS | Continuity of Care Document ---
Author Organization [facility] Address [address] [place] [address] [address] [place] [address] Phone Care Team Providers Care Production Recovery Operator Name Role Phone Jeb Ross MD, FACS Unavailable Unavailab le Advance Directives Directive Yes / No Effective Date File Name No Information Encounters Encounter Description Practice Location Reason(s) For Visit Diagnoses Date Provider Providers Copied on Encounter [facility], [address], [place], [place], [id number], tel:[phone] [address] [facility] [place] [facility] No Information Cody Russ. [id number] [place] [address], [address], [place], [place], [id number], [place]. tel:[phone] Family History Family Member Type Diagnosis Age At Onset No Information Payers Payer name Insurance type Covered democrat ID Authoriza tion(s) [facility] [id number] Social History Type Description Quantity Date Captured [...]
--- OUTSIDE RECORDS SUMMARY | 2024-12-20 17:48 | XMS_ITS | Patient Health Record ---
Author Organization [facility] Address [address] [place], [place] [id number] Care Team Providers Care Pole Tester Name Role Phone SmoothGARRY richards Unavailable [phone] Denver Platt Unavailable Unavailable Reason For Referral No Information Plan Of Treatment No Information Insurance Providers Payer Name Payer Address Payer Phone Subscriber Number Group Number Insured Name Patient Relationship to Insured Coverage Start Date Coverage End Date Aetna [address] [place] [phone] [id number] GÓMEZ MOELLER Self - patient is the insured
--- OUTSIDE RECORDS SUMMARY | 2024-12-20 17:49 | XMS_ITS | Clinical Summary ---
Author Organization [facility] Address [address] [place] [address] Care Team Providers Care Personnel Interviewer Name Role Phone HermelindoDenver manley Primary Care [...] 05/07/2022 Assessment & Plan (05/07/2022 7:20 AM QUALITY CONTROL MICROBIOLOGY SUPERVISOR): Right lower extremity moderate occlusive disease, left lower extremity mild occlusive disease based on his ABIs done at [facility]. His symptoms seem to be [...] 10/16/2014 Assessment & Plan (05/07/2022 7:20 AM QUALITY CONTROL MICROBIOLOGY SUPERVISOR): Crestor Osteoarthrosis 10/16/2014 Primary hypertension 10/16/2014 Assessment & Plan (05/07/2022 7:20 AM QUALITY CONTROL MICROBIOLOGY SUPERVISOR): Lasix Knee pain 08/29/2014 Immunizations Immunization Administration Dates Next Due Influenza, Unspecified 02/14/2023 [...] on file Legal Sex Male 5:51 AM QUALITY CONTROL MICROBIOLOGY SUPERVISOR Gender Identity Not on file Sexual Orientation [...] 7:51 AM CDT Height 185.4 cm (6' 1) 08/09/2023 7:51 AM CDT Body Mass Index 31.53 08/09/2023 7:51 AM CDT Plan of Treatment Health Maintenance Due Date Last Done Comments Colon Cancer Screening-Colonoscopy 1955 Depression Screening 1955 Hepatitis C Screening 1955 Prostate Cancer Screening-PSA 1957 Hepatitis B Screening 10/11/1975 Pneumococcal vaccine 65+ (1 of 1 - PCV) 10/11/2007 Zoster Vaccine (1 of 2) 10/11/2007 DTaP/Tdap/Td Vaccine (1 - Tdap) 09/18/2012 3 Abdominal Aortic Aneurysm (A AA) Screen 2022 Well Visit 65+ 2022 Covid-19 Vaccine (6 - 2023-2 5 season) 2024 03/10/2022, 08/20/2021, 02/18/2021, Additional history exists Fall Risk Assessment 08/09/2024 08/10/2023 Influenza Vaccine (#1) 2025 3, 03/10/2022, 02/18/2021 Insurance [id number] [place] [address] ANTHEM MEDICARE HMO PPO AETNA MEDICARE [facility] MEDICARE HMO PPO Advance Directives For more information, please contact: [phone] * Full Code (Latest Code Status on File) Date Activated Date Inactivated Comments 08/09/2023 2:16 PM 08/10/2023 3:08 PM Care Teams Personnel Interviewer Relationship Specialty Start Date End Date Denver Platt DO [address] [place] [address] PCP - General Family Medicine 05/27/22
--- NOTE | 2024-12-20 18:10 | ED_ITS ---
HPI - Nausea/Vomiting/Diarrhea General Chief complaint: Nausea/Vomiting/Diarrhea Stated complaint: per pt. he doesn't feel good, nausea Time Seen by Provider: 12/20/24 18:10 History of Present Illness HPI Narrative: 69-year-old male, smoker with a history of hypertension, dyslipidemia, HFpEF, peripheral vascular disease, status post bilateral knee surgery, status post back surgery, status post inguinal hernia surgery presents to the ED with 30 hour history of -- not feeling well. no deficit. No chest pain or shortness of breath. No fever or chills. No upper respiratory tract symptoms. -- Nausea without any abdominal pain or vomiting -- thirst MD elicited complaint: nausea Onset (ago): hour(s) ( 30 hours) Associated nausea: Yes Associated abdominal pain: No Location of pain: none Exacerbating factors: none Relieving factors: none Associated symptoms: denies other symptoms and nausea/vomiting Related Data Home Medications ?Medication ?Instructions ?Recorded ?Confirmed ?Last Taken ?Type aspirin 81 mg tablet,delayed 81 mg PO DAILY 02/25/23 07/27/23 Unknown History release cholecalciferol (vitamin D3) 125 125 mcg PO DAILY 02/25/23 07/27/23 Unknown History mcg (5,000 unit) capsule Allergies Allergy/AdvReac Type Severity Reaction Status Date / Time No Known Allergies Allergy Verified 12/20/24 18:01 Review of Systems 2 Review of Systems: All systems reviewed & are unremarkable except as noted in HPI and below Constitutional: Constitutional: Reports as per HPI, Reports no additional constitutional complaints and Reports weakness Eyes: Eyes: Reports as per HPI and Reports no additional eye complaints ENT: Reports system reviewed and no additional complaints, except as documented and Reports as per HPI Cardiovascular: Cardiovascular: Reports as per HPI and Reports no additional cardiovascular complaints Respiratory: Respiratory: Reports as per HPI and Reports no additional respiratory complaints Gastrointestinal: Gastrointestinal: Reports as per HPI, Reports no additional gastrointestinal complaints and Reports nausea Genitourinary: Genitourinary: Reports no additional male genitourinary complaints and Reports as per HPI Musculoskeletal: Musculoskeletal: Reports no additional musculoskeletal complaints and Reports as per HPI Integumentary/Breasts: Skin/Breast: Reports system reviewed and no additional complaints, except as docu and Reports as per HPI Neurologic: Reports system reviewed and no additional complaints, except as documented and Reports as per HPI Psychiatric: Psychiatric: Reports no additional psychiatric complaints and Reports as per HPI Endocrine: Endocrine: Reports no additional endocrine complaints and Reports as per HPI Hematologic/Lymphatic: Hematologic/Lymphatic: Reports no additional hematologic/lymphatic complaints and Reports as per HPI Allergic/Immunologic: Allergic/Immunologic: Reports no additional allergic/immunologic complaints and Reports as per HPI [facility] Past Medical History Medical History Heart disease CHF (congestive heart failure) Arthritis Wiggins neuroma Pleural effusion on right Atelectasis of right lung Right lower lobe Nicotine dependence 35 pack year history - quit in 2017 Erectile dysfunction PVD (peripheral vascular disease) Lower back pain Hyperlipidemia Hip pain Essential hypertension (Unknown) Surgical History Surgical History Status post LASIK surgery of both eyes History of carpal tunnel release of both wrists Hx of total knee arthroplasty Bilateral History of back surgery (~1991) L4-L5 diskectomy Hx of left inguinal hernia repair Hx of right inguinal hernia repair Family History Family History Mother Family history of dementia Father Acute myocardial infarction Hypertension Sibling Cerebrovascular accident Diabetes mellitus Hypertension Sibling Hypertension Social History Social History Social History: He is now disabled. 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 His ex- Love designated as his durable power claim attorney. He does needs himself to be a full code. He has 2 children Smoking packs per day: 1 Smoking cigarettes per day: 20.0 Years smoked: 35 Smoking pack-years: 35.00 Smoking status: Former smoker Tobacco type: cigarettes Smoking end date: 05/17/16 Alcohol intake: never Substance use type: marijuana Other substance usage details: Uses relatives medical marijuana just recently for his back and hip pain Lack of Transportation: No Lack of Food: Never True Current Housing: I Have Housing Concerned About Future Housing: No Difficulty Paying Gas/Electric Bills: No Difficulty Paying for Meds: No Currently Unemployed: No Education: Associate Degree Difficulty w/ Childcare or Family Care: No Living arrangements: with family Occupation/Education: other Gender identity (if verbalized by the patient): Male Spiritual care concerns: No Agree to blood products: Yes Exam 2 Narrative: blood pressure is 161/88 afebrile. Oxygen saturation 93% on room air. Const: General: no acute distress Orientation/consciousness: patient oriented x3 Limitations: no limitations HENMT: Head: normal to inspection Ears: external ears normal F amanda/Nose/Sinus: Normal external nose present Face and sinus: normal facial exam Mouth: Yes Normal oral and palatal mucosa present Throat: posterior oropharynx normal Eyes: Conjunctivae: conjunctivae normal Cornea: corneas normal Pupils: E qual, round and reactive pupils present EOM: EOMs intact bilaterally D irect Ophthalmoscopy: no photophobia Neck: Neck: normal visual inspection, no lymphadenopathy and no meningeal signs Chest: Chest palpation & inspection: normal inspection of the chest Resp: Effort & Inspection: normal respiratory effort Auscultation: clear to auscultation bilaterally Cardio: Rate: regular rate Rhythm: regular rhythm GI: GI Palp: Yes Soft to palpation Auscultation: normal bowel sounds O ther: No tenderness/ rigidity / rebound. : General: Yes no CVA tenderness Back/Spine/Pelvis: Back: no CVA tenderness Skin: General skin exam: normal color Rashes: no rashes Wounds: no wounds Neuro: General: patient oriented x3, moves all extremities, no meningeal signs, no focal motor deficits and CN's II-XI intact bilaterally Speech: n ormal speech Extrem: General: normal to inspection and no clubbing, cyanosis or edema Psych: Mental Status: mental status grossly normal Affect: normal affect Course Course Emergency Course: not feeling well -- patient is noted to have a positive UA with an elevated white cell count. Patient has thrombocytopenia with a platelet count of 109 which is new. Patient has normal troponins and an unremarkable EKG. Chemistries are unremarkable except for hypokalemia with a potassium of 3.3. Chest x-ray revealed chronic interstitial pattern consistent with his history of CHF. No new chest findings are noted. Patient does not have any new respiratory symptoms. Will treat him with Levaquin. Vital Signs Vital signs: Vital Signs Temperature 37.6 C 12/20/24 17:48 Pulse Rate 97 12/20/24 17:48 Respiratory Rate 18 12/20/24 17:48 Blood Pressure 161/88 H 12/20/24 17:48 Pulse Oximetry 93 12/20/24 17:48 Oxygen Delivery Room Air 12/20/24 17:48 Temperature 37.6 C 12/20/24 17:48 Pulse Rate 97 12/20/24 17:48 Respiratory Rate 18 12/20/24 17:48 Blood Pressure 147/79 H 12/20/24 21:16 Pulse Oximetry 96 12/20/24 21:16 Oxygen Delivery Room Air 12/20/24 17:48 MDM - Nausea/Vomiting/Diarrhea MDM Narrative Medical decision making narrative: Urinary tract infection hypokalemia thrombocytopenia Differential Diagnosis Differential diagnosis: Likely dehydration Medical Records Attestation: I reviewed the patient's medical records. Lab Data Attestation: I reviewed the patient's lab results. 12/20/24 18:57 12/20/24 18:57 Labs: Lab Results 12/20/24 12/20/24 12/20/24 Range/Units 18:29 18:57 19:35 WBC 16.0 H (4.8-10.8) K/mm3 RBC 5.08 (4.70-6.10) M/mm3 Hgb 15.8 H (12.4-15.3) g/dL Hct 47.0 H (37.0-46.0) % MCV 92.5 (78.0-102.0) fL MCH 31.1 H (27.0-31.0) pg MCHC 33.6 (32-36) g/dL RDW 14.2 (11.6-14.4) % Plt Count 109 L (150-420) K/mm3 MPV 11.7 H (8.7-11.0) fl Immature Gran % (Auto) 0.7 H (0.0-0.0) % Neut % (Auto) 86.4 H (50.0-70.0) % Lymph % (Auto) 5.8 L (18.0-42.0) % [place] % (Auto) 6.7 (2.0-11.0) % Eos % (Auto) 0.1 L (1.0-6.0) % Baso % (Auto) 0.3 (0.0-1.0) % Lymph # (Auto) 0.93 L (1.10-4.50) K/mm3 [place] # (Auto) 1.07 H (0.10-0.90) K/mm3 Eos # (Auto) 0.01 L (0.02-0.50) K/mm3 Baso # (Auto) 0.05 (0.00-0.10) K/mm3 Abs Immat Gran (auto) 0.12 H (0.00-0.00) K/mm3 Absolute Neuts (auto) 13.86 H (1.70-7.20) K/mm3 Absolute Nucleated RBC 0.00 (0.00-0.00) K/mm3 Nucleated RBC % 0.0 (0-0.0) % % Immature Plt Fraction 5.8 (1.0-7.0) % PT 12.0 (9.50-12.1) Seconds INR 1.1 Sodium 136 L (137-145) mmol/L Potassium 3.3 L (3.4-5.0) mmol/L Chloride 100 (98-107) mmol/L Carbon Dioxide 24 (22-30) mmol/L Anion Gap 12 (4-12) mmol/L BUN 13 (9-20) mg/dL Creatinine 0.91 (0.7-1.3) mg/dL Estim Creat Clear Calc 89 ml/min Estimated GFR > 60 (59 - ) Glucose 118 H (65-110) mg/dL Calculated Osmolality 283 L (285-295) mOsm/kg Lactic Acid 1.6 (0.4-2.0) mmol/L Calcium 9.3 (8.4-10.2) mg/dL Magnesium 1.9 (1.6-2.3) mg/dL Total Bilirubin 1.8 H (0.2-1.3) mg/dL AST 34 (17-59) U/L ALT 28 (6-50) U/L Alkaline Phosphatase 100 (38-126) U/L Troponin I < 0.012 (0.000-0.034) ng/mL Total Protein 7.5 (6.3-8.2) g/dL Albumin 4.6 (3.5-5.1) g/dL Lipase 25 (23-300) U/L Urine Color Yellow (Yellow) Urine Appearance Clear (Clear) Urine pH 6.0 (5.0-8.0) Ur Specific [place] 1.020 (1.010-1.020) Urine Protein 2+ H (Negative) Urine Glucose (UA) 3+ H (Negative) Urine Ketones 3+ H (Negative) Ur Blood (Man) 2+ H (Negative) Urine Nitrate Positive H (Negative) Urine Bilirubin Negative (Negative) Urine Urobilinogen 0.2 (0.2-1.0) mg/dL Leukocyte Esterase Rfl Negative (Negative) YEVGENIY/UL Urine RBC None seen (0-2) /hpf Urine WBC 21-30 H (0-3) /hpf Ur Squamous Epith Cells Rare (Few) /hpf Urine Bacteria 3+ H (None) /hpf Influenza A (RT-PCR) Negative (Negative) Influenza B (RT-PCR) Negative (Negative) RSV (RT-PCR) Negative (Negative) SARS-CoV-2 RNA (RT-PCR) Negative (Negative) Discharge Plan Discharge Clinical Impression: Urinary tract infection, Hypokalemia, Thrombocytopenia Patient Disposition: Home Condition: Stable Instructions: Antibiotic Form, Urinary Tract Infection in Men (ED), Thrombocytopenia (ED) Patient Language: Czech Prescriptions: New levofloxacin 500 mg tablet 500 mg PO DAILY 7 Days Qty: 7 0RF No Action aspirin 81 mg tablet,delayed release (DR/EC) 81 mg PO DAILY cholecalciferol (vitamin D3) 125 mcg (5,000 unit) capsule 125 mcg PO DAILY amlodipine 10 mg tablet See Rx Instructions .ROUTE .COMPLEX Qty: 90 3RF Dose Instruction: TAKE 1 TABLET BY MOUTH EVERY DAY Rx Instructions: TAKE 1 TABLET BY MOUTH EVERY DAY furosemide 40 mg tablet See Rx Instructions .ROUTE .COMPLEX Qty: 90 3RF Dose Instruction: TAKE 1 TABLET BY MOUTH EVERY DAY Rx Instructions: TAKE 1 TABLET BY MOUTH EVERY DAY meloxicam 15 mg tablet See Rx Instructions .ROUTE .COMPLEX Qty: 90 1RF Dose Instruction: TAKE 1 TABLET BY MOUTH EVERY DAY Rx Instructions: TAKE 1 TABLET BY MOUTH EVERY DAY metoprolol succinate 25 mg tablet extended release 24 hr See Rx Instructions .ROUTE .COMPLEX Qty: 90 3RF Dose Instruction: TAKE 1 TABLET BY MOUTH EVERY DAY Rx Instructions: TAKE 1 TABLET BY MOUTH EVERY DAY omeprazole 40 mg capsule,delayed release(DR/EC) See Rx Instructions .ROUTE .COMPLEX Qty: 90 3RF Dose Instruction: TAKE 1 CAPSULE BY MOUTH EVERY DAY Rx Instructions: TAKE 1 CAPSULE BY MOUTH EVERY DAY rosuvastatin 20 mg tablet See Rx Instructions .ROUTE .COMPLEX Qty: 90 3RF Dose Instruction: TAKE 1 TABLET BY MOUTH EVERY DAY Rx Instructions: TAKE 1 TABLET BY MOUTH EVERY DAY hydrocodone-acetaminophen 5-325 mg tablet 1 tablet PO Q8H PRN (Reason: pain) Qty: 20 0RF albuterol sulfate 90 mcg/actuation HFA aerosol inhaler See Rx Instructions .ROUTE .COMPLEX Qty: 8.5 0RF Dose Instruction: INHALE 1 PUFF EVERY 4 HOURS NEEDED FOR SHORTNESS OF BREATH OR WHEEZING Rx Instructions: INHALE 1 PUFF EVERY 4 HOURS NEEDED FOR SHORTNESS OF BREATH OR WHEEZING potassium chloride 10 mEq tablet extended release See Rx Instructions .ROUTE .COMPLEX Qty: 90 1RF Dose Instruction: TAKE 1 TABLET BY MOUTH EVERY DAY Rx Instructions: TAKE 1 TABLET BY MOUTH EVERY DAY dapagliflozin propanediol [Farxiga] 10 mg tablet See Rx Instructions .ROUTE .COMPLEX Qty: 90 3RF Dose Instruction: TAKE 1 TABLET BY MOUTH EVERY DAY Rx Instructions: TAKE 1 TABLET BY MOUTH EVERY DAY cyclobenzaprine 10 mg tablet See Rx Instructions .ROUTE .COMPLEX Qty: 90 1RF Dose Instruction: TAKE 1 TABLET BY MOUTH EVERY 8 HOURS NEEDED FOR MUSCLE SPASM Rx Instructions: TAKE 1 TABLET BY MOUTH EVERY 8 HOURS NEEDED FOR MUSCLE SPASM Follow-up/Referrals: Denver Platt DO [Primary Care Provider] - Time of Disposition: 20:09
--- NOTE | 2024-12-20 18:28 | ECG_ITS ---
Test Date: 2024-12-20 18:36:27 Measurements Intervals [place] Rate: 89 P: 33 OK: 167 QRS: 14 QRSD: 107 T: 43 QT: 359 QTc: 437 Interpretive Statements SINUS RHYTHM EARLY PRECORDIAL R/S TRANSITION BASELINE ARTIFACT- I, III, AVR, AVL, AVF BORDERLINE ECG No previous ECG available for comparison Electronically Signed On 12-20-2024 18:46:07 CDT by Jonah Winters D.O.
--- NOTE | 2024-12-20 18:42 | PC.NURSE ---
Covid culture sent to lab
--- OUTSIDE RECORDS SUMMARY | 2024-12-20 18:45 | XMS_ITS | Clinical Summary ---
Author Organization [facility] Address [address] [place] [address] Care Team Providers Care Business Account Specialist Name Role Phone HermelindoDenver manley Primary Care Provider [phone] Allergies No known active allergies Medications amLODIPine [...] Sex Assigned at Male 05/31/2024 10:08 AM FURNACE PACKER Legal Sex Male 1:11 PM FURNACE PACKER Gender Identity Not on file Sexual Orientation Not on file Last Filed Vital Signs Vital Sign Reading Time Taken Comments Blood Pressure 133/63 05/31/2024 11:50 AM FURNACE PACKER Pulse 64 05/31/2024 11:50 AM FURNACE PACKER Temperature 36.2 C (97.1 F) 05/31/2024 11:50 AM FURNACE PACKER Respiratory Rate 16 05/31/2024 11:50 AM FURNACE PACKER Oxygen Saturation 97% 05/31/2024 11:50 AM FURNACE PACKER Inhaled Oxygen Concentration - - Weight 108.9 kg (240 lb) 05/31/2024 10:28 AM FURNACE PACKER Height 185.4 cm (6' 1) 05/31/2024 10:28 AM FURNACE PACKER Body Mass Index 31.66 05/31/2024 10:28 AM FURNACE PACKER Plan of Treatment Health Maintenance Due Date [...] this topic Medical Devices Implanted Type Area Real Estate Consultant Device Identifier Shelf Expiration Date Model / Serial / Lot Tecnis 1-Piece Iol Implanted:Qty: 1 on 05/03/2024 by Estefani Kim MD at [facility] Right: Eye [employer] [facility] [id number] 06/16/2026 [id number] / [id number] / [id number] Tecnis 1-Piece Iol W/ Tecnis Simplicity Implanted:Qty: 1 on 05/31/2024 by Estefani Kim MD at [facility] [employer] [facility] 06/19/2026 [id number] / [id number] / Insurance [employer] Care Teams Business Account Specialist Relationship Specialty Start Date End Date Denver Platt DO [address] [place] [address] PCP - General FAMILY PRACTICE 04/28/24
--- OUTSIDE RECORDS SUMMARY | 2024-12-20 18:45 | XMS_ITS | Clinical Summary ---
Author Organization [facility] [employer] Address [address] [place] [address] Care Team Providers Care Inspector Metal Can Name Role Phone Denver Platt DO Primary Care Provider [phone] Source Comments [facility] [employer],non-owned Affiliates and Associated Physician Practices is amultiple site organization consisting of ambulatory clinics and hospital sitesin [place], [place], [place] and [place]. This disclosure is being madepursuant to the Care Everywhere program and may not contain all information available regarding this patient. Last updated 18.[employer] Allergies No known active allergies Medications * [...] of Phone Billing Address Personal/Family [address] [place] [address] ANTHEM * Guarantor: GÓMEZ TONG Account Type Relation to Patient Date of Phone Billing Address Personal/Family [address] [place] [address] ANTHEM * Guarantor: GÓMEZ TONG Account Type Relation to Patient Date of Phone Billing Address Personal/Family [address] [place] [address] ANTHEM * Guarantor: GÓMEZ TONG Account Type Relation to Patient Date of Phone Billing Address Personal/Family [address] [place] [address] ANTHEM * Guarantor: GÓMEZ TONG Account Type Relation to Patient Date of Phone Billing Address Personal/Family [address] [place] [address] ANTHEM * Guarantor: GÓMEZ TONG Account Type Relation to Patient Date of Phone Billing Address Personal/Family [address] [place] [address] ANTHEM Care Teams Inspector Metal Can Relationship Specialty Start Date End Date Denver Platt DO [address] [place] [address] PCP - General 06/29/22
--- OUTSIDE RECORDS SUMMARY | 2024-12-20 18:45 | XMS_ITS | Continuity of Care Document ---
Author Organization [facility] Address [id number] [place] [address] [address] [place] [address] Phone Care Team Providers Care Quality Control Manager Name Role Phone Jeb Ross MD, FACS Unavailable Unavailab le Advance Directives Directive Yes / No Effective Date File Name No Information Encounters Encounter Description Practice Location Reason(s) For Visit Diagnoses Date Provider Providers Copied on Encounter [facility], [address], [place], [place], [id number], tel:[phone] [facility] Ball No Information Cody Russ. [id number] [place] [address], [address], [place], [place], [id number], [place]. tel:[phone] Family History Family Member Type Diagnosis Age At Onset No Information Payers Payer name Insurance type Covered democrat ID Authoriza tion(s) [facility] [id number] Social History Type Description Quantity Date Captured [...]
--- OUTSIDE RECORDS SUMMARY | 2024-12-20 18:45 | XMS_ITS | Clinical Summary ---
Author Organization [facility] Address [address] [place] [id number] Care Team Providers Care Restaurant District Manager Name Role Phone HermelindoDenver manley Primary [...] 05/07/2022 Assessment & Plan (05/07/2022 7:20 AM ENVIRONMENTAL TECH): Right lower extremity moderate occlusive disease, left lower extremity mild occlusive disease based on his ABIs done at [facility]. His symptoms seem to be mixed etiology [...] 10/16/2014 Assessment & Plan (05/07/2022 7:20 AM ENVIRONMENTAL TECH): Crestor Osteoarthrosis 10/16/2014 Primary hypertension 10/16/2014 Assessment & Plan (05/07/2022 7:20 AM ENVIRONMENTAL TECH): Lasix Knee pain 08/29/2014 Immunizations Immunization Administration [...] on file Legal Sex Male 5:51 AM ENVIRONMENTAL TECH Gender Identity Not on file Sexual Orientation [...] Vaccine (#1) 2025 3, 03/10/2022, 02/18/[address]21 Insurance [id number] [place] [address] [employer] MEDICARE HMO PPO AETNA MEDICARE [facility] MEDICARE HMO PPO Advance Directives For more information, please contact: [phone] * Full Code (Latest Code Status on File) Date Activated Date Inactivated Comments 08/09/2023 2:16 PM 08/10/2023 3:08 PM Care Teams Restaurant District Manager Relationship Specialty Start Date End Date Denver Platt DO [address] [place] [address] PCP - General Family Medicine 05/27/22
--- NOTE | 2024-12-20 19:02 | PC.NURSE ---
report to amy mo
[2024-12-20 19:07] LABS: Hematocrit 47.0 % (37.0-46.0); Hemoglobin 15.8 g/dL (12.4-15.3); Immature Granulocyte Percent A 0.7 % (0.0-0.0); Lymphocytes Absolute Auto 0.93 K/mm3 (1.10-4.50); Mean Corpuscular HGB Conc 33.6 g/dL (32-36); Mean Corpuscular Hemoglobin 31.1 pg (27.0-31.0); Mean Corpuscular Volume 92.5 fL (78.0-102.0); Nucleated Red Blood Cells Absolute Auto 0.00 K/mm3 (0.00-0.00); Nucleated Red Blood Cells Perc 0.0 % (0-0.0); Platelet Count Result 109 K/mm3 (150-420); Red Blood Count 5.08 M/mm3 (4.70-6.10); White Blood Count 16.0 K/mm3 (4.8-10.8)
[2024-12-20 19:13] LABS: Immature Platelet Fraction Pct 5.8 % (1.0-7.0)
[2024-12-20 19:19] LABS: Alanine Aminotransferase 28 U/L (6-50); Albumin Level 4.6 g/dL (3.5-5.1); Alkaline Phosphatase 100 U/L (38-126); Anion Gap 12 mmol/L (4-12); Aspartate Amino Transferase 34 U/L (17-59); Bilirubin,Total 1.8 mg/dL (0.2-1.3); Blood Urea Nitrogen 13 mg/dL (9-20); Calcium 9.3 mg/dL (8.4-10.2); Carbon Dioxide 24 mmol/L (22-30); Chloride 100 mmol/L (98-107); Estimated CRCL calculation 89 ml/min; Estimated Glomerular Filt Rate > 60; Glucose 118 mg/dL (65-110); INR 1.1; Lipase 25 U/L (23-300); Magnesium 1.9 mg/dL (1.6-2.3); Osmolality Calculated 283 mOsm/kg (285-295); Potassium 3.3 mmol/L (3.4-5.0); Prothrombin Time 12.0 Seconds (9.50-12.1); Sodium 136 mmol/L (137-145); Total Protein 7.5 g/dL (6.3-8.2)
[2024-12-20 19:31] LABS: Troponin I < 0.012 ng/mL (0.000-0.034)
[2024-12-20 19:43] LABS: Influenza A QL RT-PCR Negative (Negative); Influenza B QL RT-PCR Negative (Negative); RSV RNA, RT-PCR Negative (Negative); SARS-CoV-2 RNA PCR Negative (Negative)
[2024-12-20 19:47] LABS: Add Urine Microscopic? YES; Appearance Urine Clear (Clear); Glucose Urine UA 3+ (Negative); Leukocyte Esterase Ur Negative LEU/UL (Negative); Nitrate Urine Positive (Negative); Specific Grav Ur 1.020 (1.010-1.020)
[2024-12-20] MEDS: levoFLOXacin 500 MG/D5W 100 ML 500 MG/100 ML BAG 100 MG IVPB (20:27)
[2024-12-20] MEDS: POTASSIUM CHLORIDE 20 MEQ ER TABLET 40 MEQ PO (20:28)
--- NOTE | 2024-12-24 13:21 | PC.NURSE ---
preliminary urine culture report reviewed. gram negative bacilli isolated
--- NOTE | 2024-12-27 12:59 | PC.NURSE ---
final urine culture reviewed. klebsiella pneumoniae isolated. sensitivity rpt shows responsive to levofloxacin. pt prescribed levofloxacin at discharge. no change in plan of care.
== END 2024-12-20 21:30 | disposition home or self-care (01) ==
PROVIDERS: Emergency Provider Internal Medicine Critical Care Medicine; PCP Family Medicine
DX: N39.0 Urinary tract infection, site not specified (principal); E87.6 Hypokalemia; D69.6 Thrombocytopenia, unspecified; I10 Essential (primary) hypertension; E78.5 Hyperlipidemia, unspecified; I11.0 Hypertensive heart disease with heart failure; I50.9 Heart failure, unspecified; Z87.891 Personal history of nicotine dependence; Z20.822 Contact with and (suspected) exposure to COVID-19
CPT/HCPCS: 36415; 71045; 80053; 81001; 83605; 83690; 83735; 84484; 85025; 85055; 85610; 87637; 93005; 96365; 99284; A9270; J1956

== ENCOUNTER 2024-12-29 10:08 | Outpatient (CLI) | payer MEDICARE, SELFPAY ==
--- OUTSIDE RECORDS SUMMARY | 2024-12-29 10:13 | XMS_ITS | Continuity of Care Document ---
Author Organization [facility] Address [id number] [place] [address] [address] [place] [address] Phone Care Team Providers Care Employment Service Specialist Name Role Phone Jeb Ross MD, FACS Unavailable Unavailab le Advance Directives Directive Yes / No Effective Date File Name No Information Encounters Encounter Description Practice Location Reason(s) For Visit Diagnoses Date Provider Providers Copied on Encounter [facility], [address], [place], [place], [id number], tel:[phone] [facility] Ball No Information Cody Russ. [id number] [place] [address], [address], [place], [place], [id number], [place]. tel:[phone] Family History Family Member Type Diagnosis Age At Onset No Information Payers Payer name Insurance type Covered republican ID Authoriza tion(s) [facility] [id number] Social History Type Description Quantity Date Captured [...]
[2024-12-29 11:24] LABS: Prostate Specific Antigen 7.2 ng/mL (< OR = 4.0)
== END 2024-12-29 10:09 | disposition home or self-care (01) ==
LOC: CHSLAB 10:10
PROVIDERS: PCP Family Medicine; Visit Provider Family Medicine
DX: R35.1 Nocturia (principal); Z12.5 Encounter for screening for malignant neoplasm of prostate
CPT/HCPCS: 36415; 84153; G0103

== ENCOUNTER 2025-05-14 09:20 | Outpatient (CLI) | payer MEDICARE, SELFPAY ==
--- OUTSIDE RECORDS SUMMARY | 2025-05-14 09:53 | XMS_ITS | Clinical Summary ---
Author Organization [facility] Address [address] [place] [address] Care Team Providers Care Sock Examiner Name Role Phone HermelindoDenver manley Primary Care Provider [phone] Allergies No known active allergies Medications amLODIPine [...] Sex Assigned at Male 05/31/2024 10:08 AM FRESH FOOD MANAGER Legal Sex Male 1:11 PM FRESH FOOD MANAGER Gender Identity Not on file Sexual Orientation Not on file Last Filed Vital Signs Vital Sign Reading Time Taken Comments Blood Pressure 133/63 05/31/2024 11:50 AM FRESH FOOD MANAGER Pulse 64 05/31/2024 11:50 AM FRESH FOOD MANAGER Temperature 36.2 C (97.1 F) 05/31/2024 11:50 AM FRESH FOOD MANAGER Respiratory Rate 16 05/31/2024 11:50 AM FRESH FOOD MANAGER Oxygen Saturation 97% 05/31/2024 11:50 AM FRESH FOOD MANAGER Inhaled Oxygen Concentration - - Weight 108.9 kg (240 lb) 05/31/2024 10:28 AM FRESH FOOD MANAGER Height 185.4 cm (6' 1) 05/31/2024 10:28 AM FRESH FOOD MANAGER Body Mass Index 31.66 05/31/2024 10:28 AM FRESH FOOD MANAGER Plan of Treatment Health Maintenance Due Date Last Done Comments Colorectal Cancer Screening Colonoscopy (10 Years) 1955 Hepatitis C 10/11/1975 Pneumococcal Vaccine: 50+ Years (1 of 1 - PCV) 10/11/2007 Zoster Vaccines (1 of 2) 10/11/2007 DTaP, Tdap and Td Vaccines (1 - Tdap) 09/18/2012 09/17/2012 AAA SCREENING 2022 COVID-19 Vaccine ( season) 2025 02/11/2024, 03/29/2023, 03/10/2022, Additional history exists Influenza Adult (#1) 2025 02/11/2024, 02/14/2023, 03/10/2022, Additional history exists RSV Immunization or 60+ Years (1 - 1-dose 75+ series) 2032 Hepatitis A Vaccines Aged Out No long er eligible based on patient's age to complete this topic Meningococcal B Vaccine Aged Out No l onger eligible based on patient's age to complete this topic Meningococcal Vaccine Aged Out No juan tamara eligible based on patient's age to complete this topic RSV Immunizations Under 20 Months Aged Out No longer eligible based on patient's age to complete this topic Medical Devices Implanted Type Area Rug Backing Stenciler Device Identifier Shelf Expiration Date Model / Serial / Lot Tecnis 1-Piece Iol Implanted:Qty: 1 on 05/03/2024 by Estefani Kim MD at [facility] Right: Eye [employer] [id number] 06/16/2026 [id number] / [id number] / [id number] Tecnis 1-Piece Iol W/ Tecnis Simplicity Implanted:Qty: 1 on 05/31/2024 by Estefani Kim MD at [facility] [employer] 06/19/2026 [id number] / [id number] / Insurance [facility] Care Teams Sock Examiner Relationship Specialty Start Date End Date Denver Platt DO [address] [place] [address] PCP - General FAMILY PRACTICE 04/28/24
--- OUTSIDE RECORDS SUMMARY | 2025-05-14 09:53 | XMS_ITS | Clinical Summary ---
Author Organization [facility] Address [address] [place] [address] Care Team Providers Care Labor Crew Supervisor Name Role Phone HermelindoDenver manley Primary Care [...] 05/07/2022 Assessment & Plan (05/07/2022 7:20 AM NATURAL DEVELOPER): Right lower extremity moderate occlusive disease, left [...] 10/16/2014 Assessment & Plan (05/07/2022 7:20 AM NATURAL DEVELOPER): Crestor Osteoarthrosis 10/16/2014 Primary hypertension 10/16/2014 Assessment & Plan (05/07/2022 7:20 AM NATURAL DEVELOPER): Lasix Knee pain 08/29/2014 Immunizations Immunization Administration [...] on file Legal Sex Male 5:51 AM NATURAL DEVELOPER Gender Identity Not on file Sexual Orientation [...] AA) Screen 2022 Well Visit 65+ 2022 Fall Risk Assessment 08/09/2024 08/10/2023 Covid-19 Vaccine (6 - 2024-2 6 season) 2025 03/10/2022, 08/20/2021, 02/18/2021, Additional history exists Influenza Vaccine (#1) 2025 , 03/10/2022, 02/18/2021 Insurance [id number] [place] [address] [facility] H[facility]PPO Address: [address] [address] [place] [address] [employer] MEDICARE HMO PPO AET[employer] MEDICARE [facility] MEDICARE HMO PPO Advance Directives For more information, please contact: [phone] * Full Code (Latest Code Status on File) Date Activated Date Inactivated Comments 08/09/2023 2:16 PM 08/10/2023 3:08 PM Care Teams Labor Crew Supervisor Relationship Specialty Start Date End Date Denver Platt DO [address] [place] [address] PCP - General Family Medicine 05/27/22
--- OUTSIDE RECORDS SUMMARY | 2025-05-14 09:53 | XMS_ITS | Clinical Summary ---
Author Organization [facility] Address [address] [place] [address] Care Team Providers Care Online Trader Name Role Phone Denver Platt DO Primary Care Provider [phone] Source Comments [facility],non-owned Affiliates and Associated Physician Practices is amultiple site organization consisting of ambulatory clinics and hospital sitesin [place], [place], [place] and [place]. This disclosure is being madepursuant to the Care Everywhere program and may not contain all information available regarding this patient. Last updated 18[facility] Allergies No known active allergies Medications * [...] (1 of 2) 10/11/2007 AAA SCREENING 2022 DEPRESSION SCREENING 05/17/2024 MEDICARE AWV CALENDAR YEAR 2024 COVID-19 VACCINE (1 - 2024-2 6 season) 2025 INFLUENZA VACCINE (#1) 2025 Respiratory Syncytial Virus [...] age to complete this topic Insurance AETNA [facility] MEDICARE ADVANTAGE * Guarantor: GÓMEZ TONG Account Type Relation to Patient Date of Phone Billing Address Personal/Family [address] [place] [address] [facility] MEDICARE ADVANTAGE * Guarantor: GÓMEZ TONG Account Type Relation to Patient Date of Phone Billing Address Personal/Family [address] [place] [address] [facility] MEDICARE ADVANTAGE * Guarantor: GÓMEZ TONG Account Type Relation to Patient Date of Phone Billing Address Personal/Family [address] [place] [address] [facility] MEDICARE ADVANTAGE * Guarantor: GÓMEZ TONG Account Type Relation to Patient Date of Phone Billing Address Personal/Family [address] [place] [address] [facility] MEDICARE ADVANTAGE * Guarantor: GÓMEZ TONG Account Type Relation to Patient Date of Phone Billing Address Personal/Family [address] [place] [address] [facility] MEDICARE ADVANTAGE * Guarantor: GÓMEZ TONG Account Type Relation to Patient Date of Phone Billing Address Personal/Family [address] [place] [address] [facility] MEDICARE ADVANTAGE Member Subscriber Plan / Payer ( fective 2025-Present) Name:Gómez Tong Relation to Subscriber:Self Name:Ran Gómez Manjeet Payer ID:[id number] (NAIC) Group ID:[id number] Type:Medicare-Managed Care Address: [place] [id number] Care Teams Online Trader Relationship Specialty Start Date End Date Denver Platt DO [address] [place] [address] PCP - General 06/29/22
--- OUTSIDE RECORDS SUMMARY | 2025-05-14 09:54 | XMS_ITS | Patient Health Record ---
Author Organization [facility] Address [address] [place], [place] [id number] Care Team Providers Care Client Care Representative Name Role Phone GARRY Madison Unavailable [phone] Denver Platt Unavailable Unavailable Reason For Referral No Information Social History Social History Additional Details Category Social Info Options Details Migrated Social History Migrated Social History Smoking Status : Former tobacco user , History of tobacco use : Plan Of Treatment No Information Insurance Providers Payer Name Payer Address Payer Phone Subscriber Number Group Number Insured Name Patient Relationship to Insured Coverage Start Date Coverage End Date [employer] [address] [place] [address] [id number] GÓMEZ MOELLER Self - patient is the insured
[2025-05-14 10:54] LABS: Prostate Specific Antigen 2.1 ng/mL (< OR = 4.0)
== END 2025-05-14 09:21 | disposition home or self-care (01) ==
PROVIDERS: PCP Family Medicine; Visit Provider Urology
DX: R97.20 Elevated prostate specific antigen [PSA] (principal)
CPT/HCPCS: 36415; 84153